=== PATIENT | male | born 1965 | race African-American/Black ===

== ENCOUNTER → 2025-01-20 | Outpatient (CLI) | payer BC, SELFPAY ==
[2025-01-20 17:39] LABS: AST(SGOT) 441 U/L (<=37); Alanine Aminotransfer ALT/SGPT 629 U/L (<=46); Albumin, Serum 4.4 g/dL (3.5-5.0); Alkaline Phosphatase 872 U/L (40-129); Anion Gap 12 (5-15); BUN 9 mg/dL (4-19); BUN/Creat Ratio 11.7 RATIO (10-20); Calcium,Total 9.6 mg/dL (7.6-11.0); Carbon Dioxide 24.2 mmol/L (21.0-32.0); Chloride 101 mmol/L (98-108); Globulin 4.2 g/dL (2.2-4.2); Glucose 102 mg/dL (70-99); Potassium 4.0 mmol/L (3.3-5.1)
[2025-01-20 17:42] LABS: Hematocrit 41.8 % (40-54); Hemoglobin 14.1 g/dL (13.0-16.5); Immature Granulocytes Count 0.070 X10^3/uL (0.0-0.0); Mean Corp Hgb Conc 33.7 g/dL (32-36); Mean Corpuscular Volume 84.6 fL (80-94); Mean Platelet Vol. 10.7 fl (6.2-12.0); NRBC Flagged by Analyzer 0 % (0-5); Platelet Count 262 K/mm3 (150-450); RBC Distribution Width CV 15.0 % (11.6-14.6); RBC Distribution Width SD 46.0 fl (35.1-43.9); Red Blood Count 4.94 M/mm3 (4.6-6.2); White Blood Count 11.3 K/mm3 (4.4-11.0)
[2025-01-20 18:04] LABS: Color, Urine Amber (Yellow); Glucose, Dipstick Normal (Normal); Ketone-Dipstick Negative (Negative); Leukocyte Esterase-Dipstick Negative /ul (Negative); Nitrite-Dipstick Negative (Negative); Occult Blood-Urine 25 /ul (Negative); Protein-Dipstick 30 mg/dl (Negative); Specific Gravity, Urine 1.020 (1.002-1.030)
[2025-01-20 18:05] LABS: Urine Bilirubin Dipstick 3 mg/dL (Negative)
[2025-01-20 19:37] LABS: Ammonia 92.2 umol/L (16-60)
[2025-01-21 16:12] LABS: Bilirubin, Direct 5.18 mg/dL (0.00-0.30)
[2025-01-22 03:07] LABS: HEPATITIS B SURFACE AG Negative (Negative); Hep C Antibodies Non Reactive (Non Reactive)
== END | disposition home or self-care (01) ==
LOC: VSLAB 16:23 → LAB 16:45
DX: Z13.1 Encounter for screening for diabetes mellitus (principal); R17 Unspecified jaundice
CPT/HCPCS: 36415; 80053; 80074; 81002; 82140; 82248; 83036; 85025

== ENCOUNTER 2025-01-24 13:39 | Inpatient (IN) | payer BC, SELFPAY ==
[2025-01-24] VITALS (8 sets, daily range): BP systolic 147–215; BP diastolic 92–124; PULSE 62–79; RESP 16–18; TEMP 36.7–37.1; O2SAT 97–99; BMI 24.7; BMI 29.0
--- NOTE | 2025-01-24 14:17 | CT_ITS ---
PROCEDURE: ABDOMEN/PELVIS W IV CONT ONLY 01/24/2025 REASON FOR EXAM: ELEVATE BILI, JAUNDICE Dark uterine. TECHNIQUE: Procedure Code: [id number] Modality: CT Procedure: ABDOMEN/PELVIS W IV CONT ONLY Coronal and Sagittal reconstruction series were provided. CONTRAST: Isovue-300 VOLUME: 100 mL One or more dose reduction techniques were used (e.g., Automated exposure control, adjustment of the mA and/or kV according to patient size, use of iterative reconstruction technique. RADIATION DOSE SUMMARY: CTDlvol: 8.2 mGy DLP: 467.18 mGycm COMPARISON: None FINDINGS: Lung bases: Minimal increased linear markings in the posterior medial segment of the left lower lobe suggestive of either atelectasis and/or scarring. Liver: Dilated central intrahepatic biliary ducts. Dilated common bile duct measuring 13 mm in its proximal portion. There is dilatation of the pancreatic duct. Findings suggestive of scattered cysts within the liver. The largest measures 2.4 cm by 2.4 cm in is in the central portion of the right lobe. Gallbladder: The gallbladder is distended. Spleen: Normal size. Pancreas: There is fullness of the head of the pancreas. Correlation with the ERCP recommended for further evaluation to rule out the possible mass in the head of the pancreas. Adrenals: Unremarkable Kidneys: Normal renal sizes. No hydronephrosis. Bladder: Distended urinary bladder. Prostatic enlargement with indentation of the bladder base. The prostate measures 4.9 cm by 5.4 cm. This causes indentation of the bladder base. Bowel: Unremarkable Appendix: Unremarkable Lymph nodes: No suspicious lymph node enlargement. Vasculature: The abdominal aorta and IVC are normal. Peritoneum / Retroperitoneum: Unremarkable Bones: Loss of the normal lumbar lordosis. Mild anterior spondylosis at the L2- L3 and L4-L5 levels. CT/Abdomen/Pelvis W IV Cont ONLY IMPRESSION: Dilated intra hepatic biliary ducts as well as the common bile duct and pancrea tic duct. Findings suggestive of a mass in the head of the pancreas. Correlation with ER CP recommended. Scattered hepatic cysts. Distended urinary bladder. Prostatic enlargement. Reading Location: [place] [id number]
--- NOTE | 2025-01-24 14:17 | EX.ED.DYSGE1 ---
HPI History of Present Illness Chief Complaint: Abn Labs Narrative Narrative: Patient is a 59-year-old male with no significant PMHx presenting with dark urine and scleral icterus. - Reports noticing dark urine for the past month. - Scleral icterus was observed by someone else approximately 5 days ago; unsure if it has been present longer. - Denies abdominal pain, nausea, emesis, diarrhea, dysuria, fevers, chills, chest pain, dyspnea, headaches, or vision changes. - Reports decreased flatulence. - No history of abdominal surgeries. - Denies tobacco, alcohol, or drug use. PFSH PFSH Medical History BPH (benign prostatic hyperplasia) Non-smoker Home Medications ?Medication ?Instructions ?Recorded ?Last Taken ?Type ibuprofen 200 mg tablet (Advil) 400 mg PO Q6H PRN fever or pain 01/24/25 Unknown History Allergy/AdvReac Type Severity Reaction Status Date / Time No Known Allergies Allergy Verified 01/24/25 13:42 Social History Smoking Status: Never smoker ROS ROS ED ROS Narrative Constitutional: (-) fever, (-) chills Head: (-) headache Eyes: (+) scleral icterus, (-) visual changes Cardiovascular: (-) chest pain Respiratory: (-) shortness of breath Gastrointestinal: (-) abdominal pain, (-) nausea, (-) vomiting, (-) diarrhea Genitourinary: (+) dark urine, (-) dysuria EXAM Physical Exam Narrative Exam Narrative: General: Patient was lying in bed rest comfortably did not appear to be acute distress Head: Atraumatic, normocephalic Eyes: Patient has scleral icterus noted bilaterally, PERRL bilaterally, EOMI bilaterally Neck: Soft, supple, trachea midline Cardiovascular: Regular rate and rhythm Respiratory: Clear to auscultation bilaterally Abdomen: Soft, nondistended, no tenderness to palpation Extremities: +5/5 strength noted in the bilateral upper and lower extremities, radial pulses +2/4 in the bilateral extremities Neurological: Patient following commands knew that he was at [facility] year is 2024 Skin: Warm, dry, intact no rashes or lesions noted Const Vital Signs: 01/24/25 13:40 01/24/25 14:02 01/24/25 16:05 Temperature 98.3 F 98.7 F Temperature Source Oral Pulse Rate 79 71 Respiratory Rate 16 18 Respiratory Effort Normal Blood Pressure 215/124 H 189/110 H Blood Pressure Mean 154 136 Pulse Ox 98 99 Oxygen Delivery Method Room Air MDM MDM MDM Narrative Medical decision making narrative: Patient is a 59-year-old male who presented to the emergency department with a chief complaint of jaundice and scleral icterus with abnormal blood work obtained in the outpatient setting. On the differential diagnose includes but limited to pancreatic mass, choledocholithiasis, cholangitis. Once workup is obtained reviewed he will be reevaluated. Patient be given IV fluids. Patient's CBC was reviewed which showed a normal white blood cell count of 9, he was stable 14.4, plate count 288. Patient sodium was 136, potassium normal 3.3, creatinine 0.78. Patient total bilirubin elevated 9.37, AST and ALT were 403 and 659 respectively direct bilirubin also elevated to 6.83. Patient lipase elevated to 26. Patient urinalysis did not show any evidence of infection however there was urobilinogen and bilirubin noted. Patient CT abdomen pelvis with IV contrast reviewed which showed dilated intrahepatic biliary duct as well as common bile duct and pancreatic duct finding suggestive of mass in the head of the pancreas correlation with ERCP recommended. Scattered hepatic cyst noted. Discussed case with on-call office director Dr. Baptiste who states that the patient can stay here at [facility] and he can evaluate and placed a stent. I discussed these results with the patient and family members at bedside Will discuss case with hospitalist for admission. Discussed case with hospitalist Dr. Corona who will except patient for admission. Patient notified as well as Hernández members at bedside all question concerns answered Lab Data Labs: Laboratory Results - last 24 hr 01/24/25 01/24/25 14:00 14:15 WBC 9.0 RBC 5.10 Hgb 14.4 Hct 43.1 MCV 84.5 MCH 28.2 MCHC 33.4 RDW Std Deviation 49.5 H RDW Coeff of Amie 15.9 H Plt Count 288 MPV 10.5 Immature Gran % (Auto) 0.800 Neut % (Auto) 70.8 H Lymph % (Auto) 19.8 [place] % (Auto) 8.0 Eos % (Auto) 0.2 Baso % (Auto) 0.4 Absolute Neuts (auto) 6.4 Absolute Lymphs (auto) 1.78 Nucleated RBC % 0 Sodium 136 Potassium 3.3 Chloride 100 Carbon Dioxide 23.5 Anion Gap 12 BUN 7 Creatinine 0.78 Estim Creat Clear Calc 95.34 Est GFR (MDRD) Non-Af 103 BUN/Creatinine Ratio 8.9 L Glucose 194 H Calcium 9.4 Total Bilirubin 9.37 H Direct Bilirubin 6.83 H AST 403 H ALT 659 H Alkaline Phosphatase 779 H Total Protein 8.5 H Albumin 4.4 Globulin 4.2 Albumin/Globulin Ratio 1.1 Lipase 226 H Urine Color Teresa Urine Clarity Clear Urine pH 6.0 Ur Specific [place] 1.010 Urine Protein 30 H Urine Glucose (UA) 100 H Urine Ketones Negative Urine Occult Blood 10 H Urine Nitrite Negative Urine Bilirubin 3 H Urine Urobilinogen 1 H Ur Leukocyte Esterase Negative Urine RBC 0-5 SEEN Urine WBC 0 SEEN Ur Squamous Epith Cells 0 SEEN Urine Bacteria 0 SEEN Urine Mucus RARE Radiography Diagnostic Testing: Clinical Impression(s) from Imaging Studies Abdomen/Pelvis CT 01/24/25 14:17 IMPRESSION: Dilated intra hepatic biliary ducts as well as the common bile duct and pancreatic duct. Findings suggestive of a mass in the head of the pancreas. Correlation with ERCP recommended. Scattered hepatic cysts. Distended urinary bladder. Prostatic enlargement. Reading Location: [facility] Discharge Plan Dx/Rx/DC Orders Clinical Impression: Hyperbilirubinemia, Transaminitis, Dilated bile duct, Mass of head of pancreas, Elevated BP without diagnosis of hypertension Disposition Disposition: Acute Care [facility]
[2025-01-24 14:23] LABS: Squamous Epithelial Cells - UA 0 SEEN /hpf (0-5)
[2025-01-24] MEDS: 0.9% Normal Saline (1000mL) 1,000 ML 999 ML IV (14:23)
[2025-01-24 14:24] LABS: Hematocrit 43.1 % (40-54); Hemoglobin 14.4 g/dL (13.0-16.5); Immature Granulocytes Count 0.070 X10^3/uL (0.0-0.0); Mean Corp Hgb Conc 33.4 g/dL (32-36); Mean Corpuscular Volume 84.5 fL (80-94); Mean Platelet Vol. 10.5 fl (6.2-12.0); NRBC Flagged by Analyzer 0 % (0-5); Platelet Count 288 K/mm3 (150-450); RBC Distribution Width CV 15.9 % (11.6-14.6); RBC Distribution Width SD 49.5 fl (35.1-43.9); Red Blood Count 5.10 M/mm3 (4.6-6.2); White Blood Count 9.0 K/mm3 (4.4-11.0)
[2025-01-24 14:27] LABS: Glucose, Dipstick 100 mg/dl (Normal); Ketone-Dipstick Negative (Negative); Leukocyte Esterase-Dipstick Negative /ul (Negative); Nitrite-Dipstick Negative (Negative); Occult Blood-Urine 10 /ul (Negative); Protein-Dipstick 30 mg/dl (Negative); Specific Gravity, Urine 1.010 (1.002-1.030)
[2025-01-24 14:33] LABS: Urine Bilirubin Dipstick 3 mg/dL (Negative)
[2025-01-24 14:34] LABS: Color, Urine Amber (Yellow)
[2025-01-24 14:35] LABS: Mucous, Urine RARE /hpf (<or=2+); Red Blood Cells-Urine 0-5 SEEN /hpf (0-5)
[2025-01-24 14:36] LABS: AST(SGOT) 403 U/L (<=37); Alanine Aminotransfer ALT/SGPT 659 U/L (<=46); Albumin, Serum 4.4 g/dL (3.5-5.0); Alkaline Phosphatase 779 U/L (40-129); Anion Gap 12 (5-15); BUN 7 mg/dL (4-19); BUN/Creat Ratio 8.9 RATIO (10-20); Bilirubin, Direct 6.83 mg/dL (0.00-0.30); Calcium,Total 9.4 mg/dL (7.6-11.0); Carbon Dioxide 23.5 mmol/L (21.0-32.0); Chloride 100 mmol/L (98-108); Estimated Creatinine Clearance 95.34 ml/min (50-250); Globulin 4.2 g/dL (2.2-4.2); Glucose 194 mg/dL (70-99); Lipase 226 U/L (13-75); Potassium 3.3 mmol/L (3.3-5.1)
--- NOTE | 2025-01-24 16:01 | PCM.HP.STD ---
HPI - General General Date of Admission: 01/24/25 Date of Service: 01/24/25 Chief Complaint: Abnormal labs HPI Narrative JUAN C MOREL, is a 59 M who presented to the emergency department at [facility] on 01/24/2025 due to abnormal outpatient labs. Patient reported that for about the last month he had had abnormally colored urine and then over the last week or so patient and family had noted that the whites of his eyes had become yellow. He denies any abdominal pain. He denies any nausea or vomiting. He states his bowel movements have been normal. He states his appetite has been normal and he has had no weight loss. He has no surgical history. He has no family history of any cancers to his knowledge. He is a lifelong non-smoker nondrinker and has never used any illicit substances. He is an immigrant from [facility] and has been in the [place] for about 5 years. Vital signs on presentation showed temperature of 98.3, heart rate 79, respiratory rate 16, initial blood pressure was 215/124, pulse ox was 98% on room air. CBC was unremarkable. Chemistry panel showed normal electrolytes, normal renal function, his glucose was elevated at 194 but he had a hemoglobin A1c that was done on 01/20/2025 that was 5.9. Liver functions and bilirubin were markedly abnormal. Alk phos was 779 with an ALT of 659, AST of 403 a direct bilirubin of 6.83 and bilirubin was 9.37. On outpatient labs done on 01/20/2025 he did have a ammonia level of 92.2 but is not encephalopathic. His lipase is 226 but he has no abdominal pain. His urine has significant bilirubin and urobilinogen but is not suggestive of infection. He also has proteinuria and glucosuria. He had outpatient hepatitis studies done that were negative he had outpatient hepatitis studies that were negative. Given his markedly elevated liver studies CT of the abdomen pelvis was done and showed dilated intrahepatic biliary ducts as well as dilated common bile duct and pancreatic duct with findings suggestive of a mass in the pancreatic head, scattered hepatic cysts, distended urinary bladder and enlarged prostate. Case was discussed with gastroenterology and plan is for inpatient ERCP. Anticipated length of stay is greater than 2 midnights. PFSH Medical History BPH (benign prostatic hyperplasia) Non-smoker Home Medications ?Medication ?Instructions ?Recorded ?Last Taken ?Type ibuprofen 200 mg tablet (Advil) 400 mg PO Q6H PRN fever or pain 01/24/25 Unknown History Allergy/AdvReac Type Severity Reaction Status Date / Time No Known Allergies Allergy Verified 01/24/25 13:42 Family History no significant family his no significant family history Surgical History no surgical history no surgical history Social History (Updated 01/24/25 @ 19:[address] Gisselle Corona, DO) household members: family housing: apartment current occupational status: employed Smoking Status: Never smoker alcohol intake: never substance use type: does not use ROS Constitutional Constitutional: Denies anorexia, change in weight, chills, fatigue, fever(s), malaise, night sweats, weakness or other Eyes Eyes: Reports other Details: Yellowing in the whites of his eyes ENT HEENT: Denies abnormal hearing, dysphagia, ear pain, epistaxis, headache(s), hearing loss, nasal congestion, nasal discharge, post nasal drip, sinus pressure, sore throat or other Cardiovascular Cardiovascular: Denies chest pain, claudication, dyspnea on exertion, edema, lightheadedness, orthopnea, palpitations, paroxysmal nocturnal dyspnea, rapid heart rate, syncope or other Respiratory/Chest Respiratory/Chest: Denies cough, dyspnea, excessive phlegm production, hemoptysis, productive cough, shortness of breath at rest, shortness of breath with exertion, wheezing or other Gastrointestinal Gastrointestinal: Denies abdominal pain, coffee ground emesis, constipation, diarrhea, dyspepsia, hematemesis, hematochezia, loose stools, melena, nausea, vomiting or other Genitourinary Genitourinary: Reports other Details: Darkening of urine in color for 1 month ; Denies burning urination, difficulty urinating, dysuria, hematuria, nocturia, urinary frequency, urinary hesitancy, urinary incontinence or urinary urgency Musculoskeletal Musculoskeletal: Denies arthralgias, back pain, joint pain, joint stiffness, joint swelling, myalgias, neck pain or other Neurologic Neurologic: Denies abnormal gait, abnormal speech, confusion, disequilibrium, dizziness, focal weakness, headache(s), numbness, paresthesias, seizure-like activity, seizures, syncope, tingling, tremor(s) or other Psychiatric Psychiatric: Denies anxiety, depression, homicidal ideation, suicidal ideation or other Endocrine Endocrinology: Denies change in body appearance, cold intolerance, excessive sweating, heat intolerance, polydipsia, polyuria or other Hematologic/Lymphatic Hematologic/Lymphatic: Denies anemia, easy bleeding, easy bruising, lymphadenopathy or other Allergic/Immunologic Allergic/Immunologic: Denies rhinitis, hives, eczemia, asthma or other Vital Signs Vital Signs Vital Signs: 01/24/25 13:40 01/24/25 14:02 Temperature 98.3 F Temperature Source Oral Pulse Rate 79 Respiratory Rate 16 Respiratory Effort Normal Blood Pressure 215/124 H Blood Pressure Mean 154 Pulse Ox 98 Oxygen Delivery Method Room Air Weight Weight: 71.668 kg Body Mass Index (BMI) 24.7 Physical Exam Const alert, oriented x3, no apparent distress and well nourished Constitutional Narrative: Middle-aged, black male, sitting up in bed, appears comfortable, nontoxic, overweight General Appearance: cooperative HEENT normocephalic, head/scalp atraumatic, hearing grossly normal bilaterally and moist oral mucous membranes HEENT Narrative: Buccal mucosa is jaundice, Mallampati is 3, no thrush Eyes EOMs intact bilaterally and conjunctivae normal Eyes Narrative: Scleral icterus is present Neck supple Neck Narrative: Trachea midline, no thyroid enlargement Resp normal respiratory effort, no retractions, no use of accessory muscles and clear to auscultation bilaterally Auscultation: Negative for rales, rhonchi or wheezes Cardio regular rate, regular rhythm, S1 normal heart sound, S2 normal heart sound, no murmurs, no rub, no gallops and no clicks GI normal to inspection, nondistended, normoactive bowel sounds, soft to palpation and non-tender Extremity no clubbing, cyanosis or edema Extremity Narrative: 2+ pedal pulses Neuro moves all extremities and no focal motor deficits Speech: speech normal Psych affect normal Results Lab / Micro Data 01/24/25 14:00 01/24/25 14:00 Labs: Laboratory Results - last 24 hr 01/24/25 14:00: WBC 9.0, RBC 5.10, Hgb 14.4, Hct 43.1, MCV 84.5, MCH 28.2, MCHC 33.4, RDW Std Deviation 49.5 H, RDW Coeff of Amie 15.9 H, Plt Count 288, MPV 10.5, Immature Gran % (Auto) 0.800, Neut % (Auto) 70.8 H, Lymph % (Auto) 19.8, [place] % (Auto) 8.0, Eos % (Auto) 0.2, Baso % (Auto) 0.4, Absolute Neuts (auto) 6.4, Absolute Lymphs (auto) 1.78, Nucleated RBC % 0, Sodium 136, Potassium 3.3, Chloride 100, Carbon Dioxide 23.5, Anion Gap 12, BUN 7, Creatinine 0.78, Estim Creat Clear Calc 95.34, Est GFR (MDRD) Non-Af 103, BUN/Creatinine Ratio 8.9 L, Glucose 194 H, Calcium 9.4, Total Bilirubin 9.37 H, Direct Bilirubin 6.83 H, AST 403 H, ALT 659 H, Alkaline Phosphatase 779 H, Total Protein 8.5 H, Albumin 4.4, Globulin 4.2, Albumin/Globulin Ratio 1.1, Lipase 226 H 01/24/25 14:15: Urine Color Teresa, Urine Clarity Clear, Urine pH 6.0, Ur Specific [place] 1.010, Urine Protein 30 H, Urine Glucose (UA) 100 H, Urine Ketones Negative, Urine Occult Blood 10 H, Urine Nitrite Negative, Urine Bilirubin 3 H, Urine Urobilinogen 1 H, Ur Leukocyte Esterase Negative, Urine RBC 0-5 SEEN, Urine WBC 0 SEEN, Ur Squamous Epith Cells 0 SEEN, Urine Bacteria 0 SEEN, Urine Mucus RARE Imaging Radiology Impression Abdomen/Pelvis CT 01/24/25 14:17 IMPRESSION: Dilated intra hepatic biliary ducts as well as the common bile duct and pancreatic duct. Findings suggestive of a mass in the head of the pancreas. Correlation with ERCP recommended. Scattered hepatic cysts. Distended urinary bladder. Prostatic enlargement. Reading Location: [facility] Assessment & Plan Assessment/Plan (1) Hyperbilirubinemia: (2) Transaminitis: (3) Dilated bile duct: (4) Mass of head of pancreas: (5) Hyperglycemia: (6) Elevated BP without diagnosis of hypertension: (7) Urinary retention: PLAN: Plan Pancreatic head mass - Highly suspect malignancy - ERCP for diagnosis - Check CA 19-9 - GI consulted to assist with diagnosis and follow-up Hyperbilirubinemia/transaminitis/dilated biliary ducts - Seems to be related to a mass in the pancreatic head - Plan is for ERCP with biopsies I suspect stenting - Liver functions should improve once stents are in place - GI is consulted with plan ERCP for tomorrow - Regular diet tonight and n.p.o. after midnight - Start LR at 75 cc/h at midnight - GI consulted-discussed with Dr. Baptiste Hyperglycemia - Had outpatient A1c that was 5.9 on 01/20/2025 - Patient may develop diabetes depending on pancreatic head mass - Accu-Cheks as ordered - SSI as ordered - Blood sugar on admission was significantly higher than reflected on his A1c Elevated blood pressure - Marked blood pressure elevation in the emergency department and on the floor prior to admission with no history of hypertension - IV labetalol given in emergency department - Start inpatient amlodipine - Give enalaprilat 1.25 mg x 1 dose - as needed hydralazine 10 mg IV every 6 hours for systolic blood pressure greater than 140 - Suspect patient may need multiple agents to control his blood pressure adequately DVT prophylaxis - Subcu enoxaparin 40 mg CODE STATUS - Full code as verified Charges/Coding Visit Charges Inpatient E&M: 41249 Init Hosp L2
[2025-01-25] VITALS (16 sets, daily range): BP systolic 118–166; BP diastolic 78–104; PULSE 71–90; RESP 14–20; TEMP 36.5–37.1; O2SAT 95–100; BMI 28.8
[2025-01-25] MEDS: Lactated Ringers 1,000 ML 100 ML IV ×3 (00:16→23:02)
[2025-01-25 05:40] LABS: Hematocrit 35.5 % (40-54); Hemoglobin 12.5 g/dL (13.0-16.5); Immature Granulocytes Count 0.050 X10^3/uL (0.0-0.0); Mean Corp Hgb Conc 35.2 g/dL (32-36); Mean Corpuscular Volume 82.9 fL (80-94); Mean Platelet Vol. 10.9 fl (6.2-12.0); NRBC Flagged by Analyzer 0 % (0-5); Platelet Count 261 K/mm3 (150-450); RBC Distribution Width CV 16.0 % (11.6-14.6); RBC Distribution Width SD 48.3 fl (35.1-43.9); Red Blood Count 4.28 M/mm3 (4.6-6.2); White Blood Count 10.9 K/mm3 (4.4-11.0)
--- NOTE | 2025-01-25 05:55 | EKG12_ITS ---
Test Reason : AM EKG Blood Pressure : */* mmHG Vent. Rate : 76 BPM Atrial Rate : 76 BPM P-R Int : 174 ms QRS Dur : 82 ms QT Int : 388 ms P-R-T Axes : 54 -12 -52 degrees QTcB Int : 436 ms Normal sinus rhythm Minimal voltage criteria for LVH, may be normal variant ( R in aVL ) Nonspecific T wave abnormality Abnormal ECG No previous ECGs available Confirmed by BOLIVAR PINON, CASSIE ([id number]), sports editor GAGE KELLY ([id number]) on 01/26/2025 8:27:15 AM Referred By: JACINTA Confirmed By: CASSIE LUTZ MD
[2025-01-25 06:18] LABS: Magnesium 2.2 mg/dL (1.5-2.2)
[2025-01-25 06:34] LABS: AST(SGOT) 319 U/L (<=37); Alanine Aminotransfer ALT/SGPT 531 U/L (<=46); Albumin, Serum 3.7 g/dL (3.5-5.0); Alkaline Phosphatase 626 U/L (40-129); Anion Gap 12 (5-15); BUN 6 mg/dL (4-19); BUN/Creat Ratio 9.7 RATIO (10-20); Calcium,Total 8.8 mg/dL (7.6-11.0); Carbon Dioxide 22.0 mmol/L (21.0-32.0); Chloride 104 mmol/L (98-108); Estimated Creatinine Clearance 116.49 ml/min (50-250); Globulin 3.3 g/dL (2.2-4.2); Glucose 120 mg/dL (70-99); Potassium 3.2 mmol/L (3.3-5.1)
--- NOTE | 2025-01-25 08:30 | RAD_ITS ---
PROCEDURE: ERCP BILIARY ONLY 01/25/2025 REASON FOR EXAM: PAIN TECHNIQUE: Procedure Code: RADERCPBIL Modality: DX Procedure: ERCP BILIARY ONLY COMPARISON: 01/24/2025. FINDINGS: Intraoperative fluoroscopy was performed. 66.1 seconds of fluoroscopic time. 15.7 mGy. See procedure report for full details. RAD/ERCP Biliary Only IMPRESSION: As above. Reading Location: [id number]
--- NOTE | 2025-01-25 10:55 | PN.HOSP_ITS ---
Subjective Subjective Resting comfortably, no issues overnight Objective Data Objective Data Vital Signs: Vital Signs Temp Pulse Resp BP Pulse Ox O2 Del Method 98.4 F 89 16 157/94 H 99 Room Air 01/25/25 10:15 01/25/25 10:28 01/25/25 10:15 01/25/25 10:28 01/25/25 10:15 01/25/25 10:19 Oxygen Delivery Method Room Air Weight: 173 lb 4.533 oz Body Mass Index (BMI) 28.8 Intake & Output: Intake and Output for Last 24 Hours 01/24/25 01/25/25 01/26/25 03:59 03:59 03:59 Intake Total 1250 / 1250 995 / 995 Output Total 500 / 500 250 / 250 Balance 750 / 750 745 / 745 Lab / Micro Data 01/25/25 05:12 01/25/25 05:12 Labs: Laboratory Results - last 24 hr 01/24/25 14:00: WBC 9.0, RBC 5.10, Hgb 14.4, Hct 43.1, MCV 84.5, MCH 28.2, MCHC 33.4, RDW Std Deviation 49.5 H, RDW Coeff of Amie 15.9 H, Plt Count 288, MPV 10.5, Immature Gran % (Auto) 0.800, Neut % (Auto) 70.8 H, Lymph % (Auto) 19.8, [place] % (Auto) 8.0, Eos % (Auto) 0.2, Baso % (Auto) 0.4, Absolute Neuts (auto) 6.4, Absolute Lymphs (auto) 1.78, Nucleated RBC % 0, Sodium 136, Potassium 3.3, Chloride 100, Carbon Dioxide 23.5, Anion Gap 12, BUN 7, Creatinine 0.78, Estim Creat Clear Calc 95.34, Est GFR (MDRD) Non-Af 103, BUN/Creatinine Ratio 8.9 L, G lucose 194 H, Calcium 9.4, Total Bilirubin 9.37 H, Direct Bilirubin 6.83 H, AST 403 H, ALT 659 H, Alkaline Phosphatase 779 H, Total Protein 8.5 H, Albumin 4.4, Globulin 4.2, Albumin/Globulin Ratio 1.1, Lipase 226 H 01/24/25 14:15: Urine Color Teresa, Urine Clarity Clear, Urine pH 6.0, Ur Specific [place] 1.010, Urine Protein 30 H, Urine Glucose (UA) 100 H, Urine Ketones Negative, Urine Occult Blood 10 H, Urine Nitrite Negative, Urine Bilirubin 3 H, Urine Urobilinogen 1 H, Ur Leukocyte Esterase Negative, Urine RBC 0-5 SEEN, Urine WBC 0 SEEN, Ur Squamous Epith Cells 0 SEEN, Urine Bacteria 0 SEEN, Urine Mucus RARE 01/24/25 19:03: POC Glucose 109 H 01/24/25 21:23: POC Glucose 119 H 01/25/25 05:12: WBC 10.9, RBC 4.28 L, Hgb 12.5 L, Hct 35.5 L, MCV 82.9, MCH 29.2, MCHC 35.2 D, RDW Std Deviation 48.3 H, RDW Coeff of Amie 16.0 H, Plt Count 261, MPV 10.9, Immature Gran % (Auto) 0.500, Neut % (Auto) 70.3 H, Lymph % (Auto) 19.0, [place] % (Auto) 9.3, Eos % (Auto) 0.6, Baso % (Auto) 0.3, Absolute Neuts (auto) 7.7, Absolute Lymphs (auto) 2.07, Nucleated RBC % 0, Sodium 138, P otassium 3.2 L, Chloride 104, Carbon Dioxide 22.0, Anion Gap 12, BUN 6, C reatinine 0.66 L, Estim Creat Clear Calc 116.49, Est GFR (MDRD) Non-Af 108, B UN/Creatinine Ratio 9.7 L, Glucose 120 H, Calcium 8.8, Phosphorus 3.1, Magnesium 2.2, Total Bilirubin 7.98 H, AST 319 H, ALT 531 H, Alkaline Phosphatase 626 H, Total Protein 7.0, Albumin 3.7, Globulin 3.3, Albumin/Globulin Ratio 1.1, TSH 1.180 01/25/25 06:16: POC Glucose 121 H Radiography Diagnostic Testing: Radiology Impression Abdomen/Pelvis CT 01/24/25 14:17 IMPRESSION: Dilated intra hepatic biliary ducts as well as the common bile duct and pancreatic duct. Findings suggestive of a mass in the head of the pancreas. Correlation with ERCP recommended. Scattered hepatic cysts. Distended urinary bladder. Prostatic enlargement. Reading Location: [place] [id number] Physical Exam Narrative General: Alert, Oriented x3, Cooperative, No apparent distress HEENT: Atraumatic, PERRLA, EOMI, Normocephalic Oral: Moist Mucosa Neck: Supple, No JVD Lungs: Diminished, Normal air movement, No rhonchi, No wheeze, No rales Cardiovascular: Regular rate, Regular Rhythm, Normal S1, Normal S2, No murmurs Abdomen: Soft, Non Tender, Non-Distended, No Hepato-splenomegaly Extremities: No edema, Capillary Refill Less than 3 Seconds Skin: No rashes, No breakdown Musculoskeletal: No Tenderness to Palpation of Joints or Extremities Neurological: No focal neurological deficits, moves all extremities Psych/Mental Status: Normal Affect, Appropriate Assessment & Plan Assessment/Plan (1) Dilated bile duct: (2) Mass of head of pancreas: PLAN: Plan 1. Pancreatic head mass with hyperbilirubinemia and transaminitis and biliary duct dilatation ? Consult to GI for ERCP ? CA 19-9 is pending ? LFTs remain elevated as his bilirubin ?N.p.o., continue with IV fluids 2. Hypokalemia ? Will monitor and replace 3. Hyperglycemia and elevated blood pressure ? He is on sliding scale insulin and Accu-Cheks ? A1c is 5.9, he is not diabetic ? Blood pressures are elevated but this is likely related to current diagnosis and stress ? He has been started on admission on Norvasc, will hold and see if his blood pressure resolves after intervention for his pancreatic head mass DVT: Lovenox Charges/Coding Visit Charges Inpatient E&M: 78375 Subs Hosp L2
--- NOTE | 2025-01-25 14:04 | CASEMGMT ---
DAMIEN ALARCON Assessment: Face to Face with pt for initial transition planning/care coordination assessment. DAMIEN ALARCON introduced self and role at [facility], pt voices understanding and consents to assessment. Pt is A&O x4 and answers all questions appropriately at this time. Pt lying in bed in no distress. Care providers, pharmacy, and demographics verified/updated. Strata: 1 Admitting Dx: Transaminitis/Hyperbilirubinemia/pancreatic PCP: [facility] Specialists: Denies Preferred Pharmacy: [facility] Insurance: [place] Prescription Benefit: yes LNOK: Sister in Law, TT Living Arrangements: Pt lives with , but she is traveling for a while. ADLs: Pt states I with ADLs and IADLs. Transportation: Pt drives self and denies concerns with transportation. DME: Denies HHC/SNF: Denies Hx of. Pt states no concerns with going home at time of dc. Pt states no further concerns/needs. CM to follow. Advised pt to ask CM if any further question/concerns/needs arise, voices understanding. Pt Goal: Home Plan: Home, follow for safe DC plan. Florentino QUEZADA CM
--- NOTE | 2025-01-25 15:29 | CON.PCM.GI_ITS ---
HPI Consult Data Date of Consult: 01/25/25 HPI Narrative Reason for Consultation: Painless jaundice HPI Narrative: JUAN C MOREL, is a 59 M who presents with a Chief Complaint:?Abnormally colored urine and my eyes have turned yellow. The patient is a 59-year-old male presenting to the emergency department for evaluation of abnormal labs. He reports having abnormally colored, dark urine for approximately one month. Over the last week, both he and his family have noticed that the sclera (whites) of his eyes have become yellow. He denies fever, chills, abdominal pain, or changes in bowel habits. Labs (Outpatient, abnormal): * Alkaline Phosphatase (Alk Phos): 779 U/L (markedly elevated). * Alanine Aminotransferase (ALT): 659 U/L (markedly elevated). * Aspartate Aminotransferase (AST): 403 U/L (markedly elevated). * Direct Bilirubin: 6.83 mg/dL (markedly elevated). * Total Bilirubin: 9.37 mg/dL (markedly elevated). Imaging (CT Abdomen/Pelvis): * Dilated intrahepatic biliary ducts. * Dilated common bile duct. * Dilated pancreatic duct. * Findings suggestive of a mass in the pancreatic head PFSH Medical History BPH (benign prostatic hyperplasia) Non-smoker Home Medications ?Medication ?Instructions ?Recorded ?Last Taken ?Type ibuprofen 200 mg tablet (Advil) 400 mg PO Q6H PRN feve r or pain 01/24/25 Unknown History Allergy/AdvReac Type Severity Reaction Status Date / Time No Known Allergies Allergy Verified 01/24/25 13:42 Family History no significant family his Surgical History no surgical history Social History household members: family housing: apartment current occupational status: employed Smoking Status: Never smoker alcohol intake: never substance use type: does not use ROS Constitutional Constitutional: Denies anorexia, change in weight, chills, fatigue, fever(s), malaise, night sweats, weakness or other Eyes Eyes: Reports other Details: Yellowing in the whites of his eyes ENT HEENT: Denies abnormal hearing, dysphagia, ear pain, epistaxis, headache(s), hearing loss, nasal congestion, nasal discharge, post nasal drip, sinus pressure, sore throat or other Cardiovascular Cardiovascular: Denies chest pain, claudication, dyspnea on exertion, edema, lightheadedness, orthopnea, palpitations, paroxysmal nocturnal dyspnea, rapid heart rate, syncope or other Respiratory/Chest Respiratory/Chest: Denies cough, dyspnea, excessive phlegm production, hemoptysis, productive cough, shortness of breath at rest, shortness of breath with exertion, wheezing or other Gastrointestinal Gastrointestinal: Denies abdominal pain, coffee ground emesis, constipation, diarrhea, dyspepsia, hematemesis, hematochezia, loose stools, melena, nausea, vomiting or other Genitourinary Genitourinary: Reports other Details: Darkening of urine in color for 1 month ; Denies burning urination, difficulty urinating, dysuria, hematuria, nocturia, urinary frequency, urinary hesitancy, urinary incontinence or urinary urgency Musculoskeletal Musculoskeletal: Denies arthralgias, back pain, joint pain, joint stiffness, joint swelling, myalgias, neck pain or other Neurologic Neurologic: Denies abnormal gait, abnormal speech, confusion, disequilibrium, dizziness, focal weakness, headache(s), numbness, paresthesias, seizure-like activity, seizures, syncope, tingling, tremor(s) or other Psychiatric Psychiatric: Denies anxiety, depression, homicidal ideation, suicidal ideation or other Endocrine Endocrinology: Denies change in body appearance, cold intolerance, excessive sweating, heat intolerance, polydipsia, polyuria or other Hematologic/Lymphatic Hematologic/Lymphatic: Denies anemia, easy bleeding, easy bruising, lymphadenopathy or other Allergic/Immunologic Allergic/Immunologic: Denies rhinitis, hives, eczemia, asthma or other Physical Exam Narrative General: Alert, Oriented x3, Cooperative, No apparent distress HEENT: Atraumatic, PERRLA, EOMI, Normocephalic Oral: Moist Mucosa Neck: Supple, No JVD Lungs: Diminished, Normal air movement, No rhonchi, No wheeze, No rales Cardiovascular: Regular rate, Regular Rhythm, Normal S1, Normal S2, No murmurs Abdomen: Soft, Non Tender, Non-Distended, No Hepato-splenomegaly Extremities: No edema, Capillary Refill Less than 3 Seconds Skin: No rashes, No breakdown Musculoskeletal: No Tenderness to Palpation of Joints or Extremities Neurological: No focal neurological deficits, moves all extremities Psych/Mental Status: Normal Affect, Appropriate Lab / Micro Data 01/25/25 05:12 01/25/25 05:12 Labs: Laboratory Results - last 24 hr 01/24/25 19:03: POC Glucose 109 H 01/24/25 21:23: POC Glucose 119 H 01/25/25 05:12: WBC 10.9, RBC 4.28 L, Hgb 12.5 L, Hct 35.5 L, MCV 82.9, MCH 29.2, MCHC 35.2 D, RDW Std Deviation 48.3 H, RDW Coeff of Amie 16.0 H, Plt Count 261, MPV 10.9, Immature Gran % (Auto) 0.500, Neut % (Auto) 70.3 H, Lymph % (Auto) 19.0, [place] % (Auto) 9.3, Eos % (Auto) 0.6, Baso % (Auto) 0.3, Absolute Neuts (auto) 7.7, Absolute Lymphs (auto) 2.07, Nucleated RBC % 0, Sodium 138, P otassium 3.2 L, Chloride 104, Carbon Dioxide 22.0, Anion Gap 12, BUN 6, C reatinine 0.66 L, Estim Creat Clear Calc 116.49, Est GFR (MDRD) Non-Af 108, B UN/Creatinine Ratio 9.7 L, Glucose 120 H, Calcium 8.8, Phosphorus 3.1, Magnesium 2.2, Total Bilirubin 7.98 H, AST 319 H, ALT 531 H, Alkaline Phosphatase 626 H, Total Protein 7.0, Albumin 3.7, Globulin 3.3, Albumin/Globulin Ratio 1.1, TSH 1.180 01/25/25 06:16: POC Glucose 121 H 01/25/25 11:55: POC Glucose 126 H Assessment & Plan Assessment/Plan (1) Transaminitis: (2) Hyperbilirubinemia: (3) Dilated bile duct: (4) Mass of head of pancreas: PLAN: Differential Diagnosis: * Pancreatic head mass:?The imaging findings of a mass in the pancreatic head causing dilation of the common bile duct and pancreatic duct (the double duct sign) strongly suggest an obstructive etiology, such as a pancreatic adenocarcinoma. This would explain the constellation of symptoms and lab abnormalities. * Cholangiocarcinoma:?A tumor arising from the bile ducts could also cause biliary obstruction and the observed findings. * Chronic Pancreatitis:?Severe, chronic inflammation of the pancreas can lead to fibrosis and strictures that cause ductal dilation, but the abrupt onset of symptoms and mass-like finding make a malignancy more likely. * Benign biliary stricture:?While possible, the combination of a pancreatic head mass and abnormal liver function tests makes a simple benign stricture less likely. Final Impression:?The primary impression is an obstructive biliary process likely secondary to a pancreatic head mass, causing jaundice and elevated liver enzymes. Plan * Further imaging:?Endoscopic Retrograde Cholangiopancreatography (ERCP) to further evaluate the mass and potentially perform a biopsy and stent placement for biliary decompression. Endoscopic Ultrasound (EUS) may also be necessary. Charges/Coding Visit Charges Inpatient E&M: 31071 Init Hosp L3
[2025-01-25] MEDS: Lactated Ringers 1,000 ML 15 ML IV (15:48)
--- NOTE | 2025-01-25 15:57 | PCM.PRE.AN2 ---
ASA Classification* ASA Classification ASA Classification: 1 Assessment & Plan Anesthesia* Anesthesia Assessment Anesthesia Assessment: Discussed sedation and/or anesthesia options, risks, benefits, and alternatives with patient/parents/legal guardian/POA. Questions invited. The patient/parents/legal guardian/POA seems to understand and agrees to proceed with anesthesia plan. Reviewed the physical assessment, medical history, allergy history and patient home medications list prior to surgery/procedure/anesthetic and documented any changes. Performed airway and anesthesia risk assessments. Anesthesia Type Anesthesia Type: General History Source History Obtained from:: Patient and Chart Anesthesia Focused Assessment* Temperature: 98.3 F Pulse Rate: 75 Blood Pressure: 154/96 Respiratory Rate: 14 Pulse Ox: 98 Oxygen Delivery Method: Room Air Airway Assessment Mouth opens: >3 cm Mallampati Score: II Teeth Condition: Missing (Patient has a missing right upper molar. Rest are tight.) Neck Range of motion (ROM): Limited ROM (Slight Decrease) Labs Anesthesia Preop lab: CBC WBC, (4.4-11.0) 10.9 K/mm3 Today, 05:12 RBC, (4.6-6.2) 4.28 M/mm3 L Today, 05:12 Hgb, (13.0-16.5) 12.5 g/dL L Today, 05:12 Hct, (40-54) 35.5 % L Today, 05:12 Plt Count, (150-450) 261 K/mm3 Today, 05:12 CHEMISTRY Potassium, (3.3-5.1) 3.2 mmol/L L Today, 05:12 Sodium, (133-145) 138 mmol/L Today, 05:12 Magnesium, (1.5-2.2) 2.2 mg/dL Today, 05:12 Phosphorus, (2.7-4.5) 3.1 mg/dL Today, 05:12 BUN, (4-19) 6 mg/dL Today, 05:12 Creatinine, (0.70-1.20) 0.66 mg/dL L Today, 05:12 Glucose, (70-99) 120 mg/dL H Today, 05:12 POC Glucose, (74-106) 126 mg/dL H Today, 11:55 TSH, (0.300-4.200) 1.180 uIU/mL Today, 05:12 COAG Pre-Assessment Diagnosis/Proposed Procedure Planned Operative Procedure(s): Endoscopic retrograde cholangiopancreatography. Anesthesia History Anesthesia History - pediatric genetic counselor: Anesthesia History - pediatric genetic counselor Hx Hospitalization Any Problems With Anesthesia No 01/25/25 06:12 Cholinesterase deficiency No 01/25/25 06:12 You/Your Family Experience No 01/25/25 06:12 fever (hyperthermia) with Relationship Recent Exposure to Contagious No 01/25/25 06:12 Disease Does patient have nerve No 01/25/25 06:12 stimulator Patient instructed to have No 01/25/25 06:12 device shut off --Does patient have Pacemaker No 01/25/25 10:15 or ICD? When Was Last Pacemaker Check QUESTION #4 FULL TEXT: You/Your Family Experience fever (hyperthermia) with Anesthesia Last Oral Intake Last Oral intake: Last Oral Intake NPO since 00:00 01/25/25 10:15 Meds taken in AM with sips of water? Meds patient instructed to take am of surgery PONV PONV - pediatric genetic counselor: PONV - pediatric genetic counselor Female HX of Motion Sickness HX of N/V After Surgery Non-Smoker Duration of Surgery greater than 60 minutes Number of Risk Factors PONV Score Height & Weight Height & Weight: Anesthesia: Height & Weight Height 5 ft 5 in 01/25/25 10:15 Weight: 78.6 kg 01/25/25 10:15 Body Mass Index (BMI) 28.8 01/25/25 10:15 Respiratory Assessment Respiratory Assessment - pediatric genetic counselor: Respiratory Tract Infection Hx - pediatric genetic counselor Hx Respiratory Tract Infection No 01/25/25 06:12 STOP Sleep Apnea STOP Sleep Apnea - pediatric genetic counselor: STOP Sleep Apnea - pediatric genetic counselor Hx Hypertension Yes 01/24/25 18:56 Hx Sleep Apnea No 01/24/25 18:56 CPAP BIPAP Do you snore loudly (louder No 01/24/25 18:56 than talking or can be heard Do you often feel tired/ No 01/24/25 18:56 fatigued/ sleepy during daytime? Has anyone observed you stop No 01/24/25 18:56 breathing during sleep? STOP Results Negative 01/24/25 18:56 QUESTION #5 FULL TEXT : Do you snore loudly (louder than talking or can be heard through closed doors)? Tobacco Use History Tobacco Use History - pediatric genetic counselor: Tobacco Use History - pediatric genetic counselor Tobacco Use Smoking Status Never smoker 01/24/25 19:33 Hx Tobacco Use No 01/24/25 18:56 Years Smoking Packs Smoked per Day Smoking Cessation Date was within the last 15 years Hx Smoking Cessation Date Hx Smoking Cessation Counseling Hematologic Medial History Hematologic Hx - pediatric genetic counselor: Hematologic Medical Hx - injection maintenance technician Hx of Blood Transfusion No 01/24/25 18:56 Hx of Transfusion in last 3 No 01/24/25 18:56 Months Date of Last Transfusion (if within last 3 months) Ever experience any problems No 01/24/25 18:56 with transfusion(s)? Specify any problems Hx of Preganancy in last 3 N/A 01/24/25 18:56 Months Nurse Filling Out Transfusion ACOEY 01/24/25 18:56 & Questions: Date: 01/24/25 01/24/25 18:56 Time: 18:57 01/24/25 18:56 Patient unable to answer at this time (ie. confused, unrespo /Reproduction History /Reproductive History - pediatric genetic counselor: /Reproductive Hx- pediatric genetic counselor Hx Now No 01/25/25 06:12 Gestational Age (in weeks): EDC: Hx Hx Para Hx Section SAB No 01/25/25 06:12 Active Medications Active Medications: Current Medications Generic Name Dose Route Start Last Admin Trade Name Freq PRN Reason Stop Dose Admin Enoxaparin Sodium 40 mg 01/25/25 10:00 Enoxaparin 40 Mg/0.4 Ml Syringe SC DAILY AKASH Glucagon 1 mg 01/24/25 18:17 Glucagon 1 Mg/Ml Syringe IM X1 PRN HYPOGLYCEMIA Protocol Hydralazine HCl 10 mg 01/24/25 18:17 01/25/25 10:28 Hydralazine 20 Mg/Ml Vial IV 10 mg Q6H PRN PRN Administration SBP>140 Protocol Hydromorphone HCl 0.5 mg 01/24/25 18:17 Hydromorphone 0.5 Mg/0.5 Ml Syringe IV Q3H PRN PRN Pain Score 6-10 Dextrose 250 mls @ 0 mls/hr 01/24/25 18:17 Dextrose 10%-Water IV .Q0M PRN HYPOGLYCEMIA Protocol As Directed Lactated Ringer's 1,000 mls @ 100 mls/hr 01/25/25 00:01 01/25/25 10:13 IV 100 mls/hr .Q10H AKASH Administration Sodium Chloride 250 mls @ 15 mls/hr 01/24/25 18:22 IV .[id number] PRN Saline Flush Sodium Chloride 250 mls @ 15 mls/hr 01/24/25 18:22 IV .[id number] PRN Additional IVPB Infusion Lactated Ringer's 1,000 mls @ 15 mls/hr 01/25/25 15:45 01/25/25 15:48 IV 15 mls/hr .Q48H AKASH Administration Insulin Human Lispro 0 unit 01/24/25 22:00 01/25/25 12:00 Insulin Lispro 100 Unit/Ml Insuln.Pen SC Not Given ACHS AKASH Protocol Ondansetron HCl 4 mg 01/24/25 18:17 Ondansetron 4 Mg/2 Ml Vial IV Q8H PRN PRN NAUSEA/VOMITING Senna/Docusate Sodium 2 tablet 01/24/25 18:17 Senna/Docusate Sodium 1 Tablet PO BID PRN PRN Constipation Sodium Chloride 10 - 40 ml 01/24/25 18:22 0.9% Saline Lock 10 Ml Syringe IV UD PRN SALINE FLUSH Tamsulosin HCl 0.8 mg 01/24/25 18:17 01/24/25 18:51 Tamsulosin Hcl 0.4 Mg Capsule PO 0.8 mg DAILY@1730 AKASH Administration PFSH Medical History BPH (benign prostatic hyperplasia) Non-smoker Home Medications ?Medication ?Instructions ?Recorded ?Last Taken ?Type ibuprofen 200 mg tablet (Advil) 400 mg PO Q6H PRN fever or pain 01/24/25 Unknown History Allergy/AdvReac Type Severity Reaction Status Date / Time No Known Allergies Allergy Verified 01/24/25 13:42 Family History no significant family his Surgical History no surgical history no surgical history (No problems with anesthesia in his family.) Social History household members: family housing: apartment current occupational status: employed Smoking Status: Never smoker alcohol intake: never substance use type: does not use Review of Systems (Anesthesia) ROS Narrative System reviewed and no additional complaints, except as documented.
[2025-01-25] MEDS: Lactated Ringers 1,000 ML 1000 ML IV (16:19)
[2025-01-25] MEDS: Lidocaine 1% (5 ml sdv) 5 ML Vial 10 ML IV (16:25)
[2025-01-25] MEDS: fentaNYL 100 MCG/2 ML Ampul IV (16:25)
--- NOTE | 2025-01-25 16:30 | FLU_PTH ---
PATIENT: JUAN C MOREL [place] [facility] [id number] AGE/SX: 59/M [place]OM: [facility] [place]24/[address]: Dr. Ellen Mcqueen MD : 1965 BED: 1 DIS: 01/29/2025 SPEC #: [id number] RECD: 01/25/25 17:16 STATUS: CHRISTY ROMERO #: [id number] TRAE: 01/25/25 16:[address]: Amador Herrera DEPT: CYTOLOGY RECD BY: Rubi Escalante ENTERED: 01/26/25 07:58 SP TYPE: Fluid OTHR DR: DO Dr. Adal Lara MD Dr. Rahsaan Friend, DO Whitney Flores INTEGRATION SOFTWARE ENGINEER-C Lana Magdaleno INTEGRATION SOFTWARE ENGINEER-C DIONI Guy [facility], INTEGRATION SOFTWARE ENGINEER-C Tissues: Bile duct, NOS Procedures: Special Stain Group II Surgery Specimen Level IV Cytospin Fluid Cytology Other HEADER OPERATION: ERCP PRE-OP DIAGNOSIS: Painless jaundice, mass of pancreas TISSUE SUBMITTED: A- Biliary stricture brush tip and brushings for cytology DIAGNOSIS CYTOLOGY A. Bile duct, stricture, ERCP (cytospin, cellblock, smear x3): * No malignant cells identified. * The specimen is of low cellularity. CYTOLOGY STUDY Slides are reviewed. CYTOLOGY GROSS A. Received is 1 brush with 0.2 ml of [id number] fluid and 3 smears labeled with the patient's name and and designated per the requisition as Biliary stricture brush tip and brushings. Submitted for cytology and cell block preparation. 01/26/2025 CPT: 68563,33055
--- NOTE | 2025-01-25 17:00 | OP.PROVAT_ITS ---
01/25/2025 Onelia Drew Np, Remigio Re : ERCP procedure for Leslie Brantley Dear Viki This procedure was performed on Saturday, January 25, 2025. My impressions and recommendations are as follows: Impressions : - A single localized biliary stricture was found in the lower third of the main bile duct. The stricture was indeterminate. - The entire main bile duct and entire biliary tree were severely dilated, with a mass causing an obstruction. - Choledocholithiasis was found. Complete removal was accomplished by biliary sphincterotomy and balloon extraction. - A biliary sphincterotomy was performed. - The biliary tree was swept. - Cells for cytology obtained in the lower third of the main duct. - One temporary stent was placed into the common bile duct. Recommendations : My findings are described in the full procedure note, which is enclosed. If I can be of further assistance, please feel free to contact me at . Sincerely, Martin Baptiste DO 01/25/2025 5:00:10 PM This report has been signed electronically.
--- NOTE | 2025-01-25 17:00 | OP.ERCP_ITS ---
Patient Name: Leslie Mlotshwa Procedure Date: 01/25/2025 4:16 PM Date of : 1965 Age: 59 Procedure: ERCP Indications: Common bile duct stricture, Jaundice, Elevated liver enzymes, Tumor of the head of pancreas Providers: Martin Baptiste DO Medicines: General Anesthesia Patient Profile: This is a 59 year old male. Refer to note in patient chart for documentation of history and physical. Patient has symptoms of acute jaundice. This patient has no history of previous ERCP. This patient has no history of surgical alteration of the upper digestive tract anatomy. Complications: No immediate complications. Procedure: Pre-Anesthesia Assessment: - Prior to the procedure, a History and Physical was performed, and patient medications and allergies were reviewed. The patient is competent. The risks and benefits of the procedure and the sedation options and risks were discussed with the patient. All questions were answered and informed consent was obtained. Patient identification and proposed procedure were verified by the physician in the pre-procedure area. Mental Status Examination: alert and oriented. Airway Examination: normal oropharyngeal airway and neck mobility. Respiratory Examination: clear to auscultation. CV Examination: normal. Prophylactic Antibiotics: The patient does not require prophylactic antibiotics. Prior Anticoagulants: The patient has taken no anticoagulant or antiplatelet agents except for NSAID medication. ASA Grade Assessment: II - A patient with mild systemic disease. After reviewing the risks and benefits, the patient was deemed in satisfactory condition to undergo the procedure. The anesthesia plan was to use monitored anesthesia care (MAC). Immediately prior to administration of medications, the patient was re-assessed for adequacy to receive sedatives. The heart rate, respiratory rate, oxygen saturations, blood pressure, adequacy of pulmonary ventilation, and response to care were monitored throughout the procedure. The physical status of the patient was re-assessed after the procedure. After obtaining informed consent, the scope was passed under direct vision. Throughout the procedure, the patient's blood pressure, pulse, and oxygen saturations were monitored continuously. The Duodenoscope was introduced through the mouth, and advanced to the duodenum and used to inject contrast into the bile duct. The ERCP was accomplished without difficulty. The patient tolerated the procedure well. Scope In: 4:34:27 PM Scope Out: 4:53:59 PM Total Procedure Duration Time 0 hours 19 minutes 32 seconds Findings: The cleaning machine operator film was normal. The esophagus was successfully intubated under direct vision. The scope was advanced to a normal major papilla in the descending duodenum without detailed examination of the pharynx, larynx and associated structures, and upper GI tract. The upper GI tract was grossly normal. The bile duct was deeply cannulated with the short-nosed traction sphincterotome. Contrast was injected. I personally interpreted the bile duct images. There was brisk flow of contrast through the ducts. Image quality was adequate. Contrast extended to the entire biliary tree. Opacification of the entire opacified area and entire biliary tree was successful. The maximum diameter of the ducts was 15 mm. The lower third of the main bile duct contained a single localized stenosis 6 mm in length. The entire opacified area, main bile duct and entire biliary tree were severely dilated, with a mass causing an obstruction. The largest diameter was 15 mm. Placement of a long 0.025 inch Jagwire into the biliary tree was attempted. This passed successfully. A 5 mm biliary sphincterotomy was made with a traction (standard) sphincterotome using ERBE electrocautery. There was no post-sphincterotomy bleeding. The biliary tree was swept with a 12 mm balloon starting at the upper third of the main bile duct, middle third of the main bile duct, lower third of the main duct, bifurcation, left intrahepatic duct(s), left main hepatic duct, right intrahepatic duct(s) and right main hepatic duct. Sludge was swept from the duct. All stones were removed. Cells for cytology were obtained by brushing in the lower third of the main bile duct. One 10 Fr by 7 cm temporary stent was placed 5 cm into the common bile duct. Bile flowed through the stent. The stent was in good position. Impression: - A single localized biliary stricture was found in the lower third of the main bile duct. The stricture was indeterminate. - The entire main bile duct and entire biliary tree were severely dilated, with a mass causing an obstruction. - Choledocholithiasis was found. Complete removal was accomplished by biliary sphincterotomy and balloon extraction. - A biliary sphincterotomy was performed. - The biliary tree was swept. - Cells for cytology obtained in the lower third of the main duct. - One temporary stent was placed into the common bile duct. Procedure Code(s): --- Professional --- 42276, Endoscopic retrograde cholangiopancreatography (ERCP); with placement of endoscopic stent into biliary or pancreatic duct, including pre- and post-dilation and guide wire passage, when performed, including sphincterotomy, when performed, each stent [id number], Endoscopic retrograde cholangiopancreatography (ERCP); with removal of calculi/debris from biliary/pancreatic duct(s) 59313, 26, Endoscopic catheterization of the biliary ductal system, radiological supervision and interpretation CPT copyright 2021 [employer]. All rights reserved. The codes documented in this report are preliminary and upon cold rolling coordinator review may be revised to meet current compliance requirements. Martin Baptiste DO 01/25/2025 5:00:10 PM This report has been signed electronically. Number of Addenda: 0 Note Initiated On: 01/25/2025 4:16 PM
--- NOTE | 2025-01-25 17:10 | PCM.POST.ANE ---
Anesthesia: Postop Eval I Current Vital Signs Temperature: 97.7 F Pulse Rate: 82 Blood Pressure: 118/78 Respiratory Rate: 20 Pulse Ox: 96 Oxygen Delivery Method: Room Air Assessment Airway patent: Yes Spontaneous unlabored respirations: Yes Mental status: Awake and Calm nausea: No Vomiting: No Anesthesia Complication: No Fluid Hydration Crystalloid volume administer (ml): 400 Total IV fluid infused: 400 Progress Note Anesthesia document: Postop Eval 1 completed: Yes
[2025-01-25] MEDS: HYDROmorphone 0.5 MG/0.5 ML SYRINGE IV ×2 (18:07→21:20)
[2025-01-25] MEDS: 0.9% Saline Lock 10 ML Syringe IV ×2 (18:07→18:56)
[2025-01-25] MEDS: Potassium Chloride 10mEq/100mL 10 MEQ/100 ML IV.SOLN. 100 MEQ IV BOLUS ×4 (18:12→22:06)
--- NOTE | 2025-01-25 18:20 | CT_ITS ---
PROCEDURE: CHEST WITHOUT CONTRAST 01/25/2025 REASON FOR EXAM: PANCREATIC CANCER TECHNIQUE: Chest CT without contrast. Coronal and Sagittal reconstruction series were provided. One or more dose reduction techniques were used (e.g., Automated exposure control, adjustment of the mA and/or kV according to patient size, use of iterative reconstruction technique RADIATION DOSE SUMMARY: CTDlvol: 11.13 mGy DLP: 417.19 mGycm COMPARISON: None FINDINGS: There is bibasilar scarring. No focal airspace consolidation, pneumothorax, or pleural effusion. I do not see definite suspicious pulmonary nodule. There is no mediastinal mass or adenopathy. The thyroid gland is unremarkable. There is ectasia of the ascending aorta measuring up to 4.9 cm on image 54, series 2. Atherosclerotic coronary calcifications are noted. Heart size is nonenlarged. There is a common bile duct stent across masslike region in the pancreatic head on image 131, series 2. The spleen is unremarkable. The visualized adrenal glands and kidneys are unremarkable. Multiple hepatic lesions are noted which are nonspecific and described in greater detail on the CT abdomen and pelvis from the same day. CT/Chest without Contrast IMPRESSION: No definite evidence of metastatic disease in the thorax. Additional findings as above. Reading Location[facility]
--- NOTE | 2025-01-25 22:10 | PCM.HOSP.N ---
Hospitalist Note Pt s/p ERCP today and is c/o bloating without pains. Likely related to air insufflation or transient slowed gut motility from sedation/ opioids used for the procedure. I ordered metoclopramide 10mg PO x1 and PRN simethicone chews TID.
--- NOTE | 2025-01-25 22:19 | POSTOPAN2_ITS ---
Anesthesia Postop Eval I Sum Postop Eval Completion status Anesthesia document: Postop Eval 1 completed: Yes Anesthesia Postop Eval I Summary Anesthesia Postop Eval I Summary: Anesthesia Postop Eval I: Assessment Summary Airway patent Yes 01/25/25 17:11 [email or web address] Spontaneous unlabored Yes 01/25/25 17:11 [email or web address] respirations Mental status Awake,Calm 01/25/25 17:11 [email or web address] nausea No 01/25/25 17:11 [email or web address] Vomiting No 01/25/25 17:11 [email or web address] Anesthesia Postop Eval I: Fluid Summary Crystalloid volume administer 400 01/25/25 17:11 [email or web address] (ml) Colloids volume administered ( ml) Blood Product volume administered (ml) Total IV fluid infused 400 01/25/25 17:11 [email or web address] Anesthesia Postop Eval I: Summary Notes Anesthesia Complication No 01/25/25 17:11 [email or web address] Anesthesia Complication Comment: Post-operative progress note Anesthesia: Postop Eval II Evaluation Mental status: Awake and Calm Pain Level: 0 nausea: No Vomiting: No Complications Anesthesia Complication: No
--- NOTE | 2025-01-25 22:19 | PCM.POSTANE2 ---
Anesthesia Postop Eval I Sum Postop Eval Completion status Anesthesia document: Postop Eval 1 completed: Yes Anesthesia Postop Eval I Summary Anesthesia Postop Eval I Summary: Anesthesia Postop Eval I: Assessment Summary Airway patent Yes 01/25/25 17:11 [email or web address] [email or web address] Spontaneous unlabored Yes 01/25/25 17:11 [email or web address] [email or web address] respirations Mental status Awake,Calm 01/25/25 17:11 [email or web address] [email or web address] nausea No 01/25/25 17:11 [email or web address] Vomiting No 01/25/25 17:11 [email or web address] [email or web address] Anesthesia Postop Eval I: Fluid Summary Crystalloid volume administer 400 01/25/25 17:11 [email or web address] [email or web address] (ml) Colloids volume administered ( ml) Blood Product volume administered (ml) Total IV fluid infused 400 01/25/25 17:11 [email or web address] [email or web address] Anesthesia Postop Eval I: Summary Notes Anesthesia Complication No 01/25/25 17:11 [email or web address] Anesthesia Complication Comment: Post-operative progress note Anesthesia: Postop Eval II Evaluation Mental status: Awake and Calm Pain Level: 0 nausea: No Vomiting: No Complications Anesthesia Complication: No
[2025-01-26] VITALS (12 sets, daily range): BP systolic 153–166; BP diastolic 89–102; PULSE 86–100; RESP 16; TEMP 36.7–37.2; O2SAT 94–98; BMI 30.5
[2025-01-26] MEDS: HYDROmorphone 0.5 MG/0.5 ML SYRINGE IV (00:51)
[2025-01-26 06:37] LABS: Hematocrit 37.9 % (40-54); Hemoglobin 12.9 g/dL (13.0-16.5); Immature Granulocytes Count 0.100 X10^3/uL (0.0-0.0); Mean Corp Hgb Conc 34.0 g/dL (32-36); Mean Corpuscular Volume 83.7 fL (80-94); Mean Platelet Vol. 11.3 fl (6.2-12.0); NRBC Flagged by Analyzer 0 % (0-5); Platelet Count 285 K/mm3 (150-450); RBC Distribution Width CV 16.3 % (11.6-14.6); RBC Distribution Width SD 49.5 fl (35.1-43.9); Red Blood Count 4.53 M/mm3 (4.6-6.2); White Blood Count 11.5 K/mm3 (4.4-11.0)
[2025-01-26 07:06] LABS: AST(SGOT) 410 U/L (<=37); Alanine Aminotransfer ALT/SGPT 614 U/L (<=46); Albumin, Serum 3.9 g/dL (3.5-5.0); Alkaline Phosphatase 650 U/L (40-129); Anion Gap 13 (5-15); BUN 10 mg/dL (4-19); BUN/Creat Ratio 15.0 RATIO (10-20); Calcium,Total 9.2 mg/dL (7.6-11.0); Carbon Dioxide 20.4 mmol/L (21.0-32.0); Chloride 101 mmol/L (98-108); Estimated Creatinine Clearance 121.47 ml/min (50-250); Globulin 3.6 g/dL (2.2-4.2); Glucose 136 mg/dL (70-99); Potassium 3.9 mmol/L (3.3-5.1)
[2025-01-26] MEDS: Senna/Docusate Sodium 1 Tablet 2 TABLET PO ×2 (08:47→21:54)
--- NOTE | 2025-01-26 09:47 | PCM.PN.HOSP ---
Subjective Subjective Had ERCP yesterday with stent placement and choledocholithiasis was found, cells for cytology were also sent Objective Data Objective Data Vital Signs: Vital Signs Temp Pulse Resp BP Pulse Ox O2 Del Method 98.7 F 93 16 155/98 H 97 Room Air 01/26/25 08:38 01/26/25 08:38 01/26/25 08:38 01/26/25 08:38 01/26/25 08:38 01/26/25 08:40 Oxygen Delivery Method Room Air Weight: 183 lb 6.793 oz Body Mass Index (BMI) 30.5 Intake & Output: Intake and Output for Last 24 Hours 01/25/25 01/26/25 01/27/25 03:59 03:59 03:59 Intake Total 1250 / 1250 2887.5 / 2887.5 200 / 200 Output Total 500 / 500 725 / 725 200 / 200 Balance 750 / 750 2162.5 / 2162.5 0 / 0 Lab / Micro Data 01/26/25 05:47 01/26/25 05:47 Labs: Laboratory Results - last 24 hr 01/24/25 16:37: CA 19-9 Antigen 9 01/25/25 11:55: POC Glucose 126 H 01/25/25 18:22: POC Glucose 120 H 01/25/25 21:08: POC Glucose 132 H 01/26/25 05:47: WBC 11.5 H, RBC 4.53 L, Hgb 12.9 L, Hct 37.9 L, MCV 83.7, MCH 28.5, MCHC 34.0, RDW Std Deviation 49.5 H, RDW Coeff of Amie 16.3 H, Plt Count 285, MPV 11.3, Immature Gran % (Auto) 0.900, Neut % (Auto) 85.8 H, Lymph % (Auto) 9.2 L, [place] % (Auto) 3.9, Eos % (Auto) 0.0, Baso % (Auto) 0.2, Absolute Neuts (auto) 9.9 H, Absolute Lymphs (auto) 1.06, Nucleated RBC % 0, Sodium 135, Potassium 3.9, Chloride 101, Carbon Dioxide 20.4 L, Anion Gap 13, BUN 10, Creatinine 0.65 L, Estim Creat Clear Calc 121.47, Est GFR (MDRD) Non-Af 108, BUN/Creatinine Ratio 15.0, Glucose 136 H, Calcium 9.2, Total Bilirubin 6.79 H, AST 410 H, ALT 614 H, Alkaline Phosphatase 650 H, Total Protein 7.5, Albumin 3.9, Globulin 3.6, Albumin/Globulin Ratio 1.1 01/26/25 07:30: ROMEO-1 Antibody TNP, Sm (Molina) Antibody TNP, CITY CARRIER ASSISTANT Antibody TNP, Scl-70 Scleroderma Ab TNP, Antichromatin Antibodies TNP, Centromere B Antibody TNP Radiography Diagnostic Testing: Radiology Impression ERCP X-Ray 01/25/25 08:30 IMPRESSION: As above. Reading Location: [address] 01/25/25 18:20 IMPRESSION: No definite evidence of metastatic disease in the thorax. Additional findings as above. Reading Location: [facility] Physical Exam Narrative General: Alert, Oriented x3, Cooperative, No apparent distress HEENT: Atraumatic, PERRLA, EOMI, Normocephalic Oral: Moist Mucosa Neck: Supple, No JVD Lungs: Diminished, Normal air movement, No rhonchi, No wheeze, No rales Cardiovascular: Regular rate, Regular Rhythm, Normal S1, Normal S2, No murmurs Abdomen: Soft, Non Tender, Non-Distended, No Hepato-splenomegaly Extremities: No edema, Capillary Refill Less than 3 Seconds Skin: No rashes, No breakdown Musculoskeletal: No Tenderness to Palpation of Joints or Extremities Neurological: No focal neurological deficits, moves all extremities Psych/Mental Status: Normal Affect, Appropriate Assessment & Plan Assessment/Plan (1) Dilated bile duct: (2) Mass of head of pancreas: PLAN: Plan 1. Pancreatic head mass with hyperbilirubinemia and transaminitis and biliary duct dilatation ?Appreciate gastroenterology assistance ? CA 19-9 is pending ? LFTs remain elevated as is his bilirubin ?Continue with p.o. intake ? He was having some nausea and vomiting as well as some bloating so MRI is pending for further evaluation of this pancreatic mass 2. Hypokalemia ? Will monitor and replace 3. Hyperglycemia and elevated blood pressure ? He is on sliding scale insulin and Accu-Cheks ? A1c is 5.9, he is not diabetic ? Blood pressures are elevated but this is likely related to current diagnosis and stress ? He has been started on admission on Norvasc, will hold and see if his blood pressure resolves after intervention for his pancreatic head mass DVT: Lovegladysx Charges/Coding Visit Charges Inpatient E&M: 66643 Subs Hosp L2
[2025-01-26] MEDS: Lactated Ringers 1,000 ML 100 ML IV ×2 (09:48→21:54)
--- NOTE | 2025-01-26 10:50 | PN.GI_ITS ---
Subjective Subjective 59y/o male who goes by [employer] with no significant PMH presented with dark urine for one month and scleral icterus noted one week prior to admission.?Currently reports bloating and one episode of emesis after eating this morning.?Denies abdominal pain, nausea, fever, chills, chest pain, dyspnea, headaches, or vision changes. No BM in two days, passing flatus. - RAYMOND at bedside Objective Data Objective Data - Afebrile, receiving IV fluids (LR at 100). - CT: Dilated intrahepatic and extrahepatic biliary ducts, distended gallbladder, fullness of pancreatic head, scattered hepatic cysts. - ERCP: Severely dilated biliary tree, choledocholithiasis with complete stone removal, mass causing obstruction in lower third of main bile duct, temporary stent placed, cytology obtained. - Labs: T. bili 6.79 (down from 9.37), AST 410 (up from 319), ALT 614 (up from 531), ALP 650 (down from peak 872), WBC 11.5, HGB 12.9, ANC 9.9. Vital Signs: Vital Signs Temp Pulse Resp BP Pulse Ox O2 Del Method 98.7 F 93 16 155/98 H 97 Room Air 01/26/25 08:38 01/26/25 08:38 01/26/25 08:38 01/26/25 08:38 01/26/25 08:38 01/26/25 08:40 Oxygen Delivery Method Room Air Weight: 183 lb 6.793 oz Body Mass Index (BMI) 30.5 Intake & Output: Intake and Output for Last 24 Hours 01/24/25 01/25/25 01/26/25 23:59 23:59 23:59 Intake Total 1000 / 1000 2745 / 2995 1592.5 / 1592.5 Output Total 500 / 500 725 / 725 200 / 200 Balance 500 / 500 2020 / 2270 1392.5 / 1392.5 Lab / Micro Data 01/26/25 05:47 01/26/25 05:47 Labs: Laboratory Results - last 24 hr 01/24/25 16:37: CA 19-9 Antigen 9 01/25/25 11:55: POC Glucose 126 H 01/25/25 18:22: POC Glucose 120 H 01/25/25 21:08: POC Glucose 132 H 01/26/25 05:47: WBC 11.5 H, RBC 4.53 L, Hgb 12.9 L, Hct 37.9 L, MCV 83.7, MCH 28.5, MCHC 34.0, RDW Std Deviation 49.5 H, RDW Coeff of Amie 16.3 H, Plt Count 285, MPV 11.3, Immature Gran % (Auto) 0.900, Neut % (Auto) 85.8 H, Lymph % (Auto) 9.2 L, [place] % (Auto) 3.9, Eos % (Auto) 0.0, Baso % (Auto) 0.2, Absolute Neuts (auto) 9.9 H, Absolute Lymphs (auto) 1.06, Nucleated RBC % 0, Sodium 135, Potassium 3.9, Chloride 101, Carbon Dioxide 20.4 L, Anion Gap 13, BUN 10, C reatinine 0.65 L, Estim Creat Clear Calc 121.47, Est GFR (MDRD) Non-Af 108, BUN/Creatinine Ratio 15.0, Glucose 136 H, Calcium 9.2, Total Bilirubin 6.79 H, A ST 410 H, ALT 614 H, Alkaline Phosphatase 650 H, Total Protein 7.5, Albumin 3.9, Globulin 3.6, Albumin/Globulin Ratio 1.1 01/26/25 07:30: ROMEO-1 Antibody TNP, Sm (Molina) Antibody TNP, WELDING MACHINE OPERATOR THERMIT Antibody TNP, Scl-70 Scleroderma Ab TNP, Antichromatin Antibodies TNP, Centromere B Antibody TNP Radiography Diagnostic Testing: Radiology Impression ERCP X-Ray 01/25/25 08:30 IMPRESSION: As above. Reading Location: [address] 01/25/25 18:20 IMPRESSION: No definite evidence of metastatic disease in the thorax. Additional findings as above. Reading Location: [facility] Physical Exam Narrative A&Ox3, pleasant Const no apparent distress and average body habitus General Appearance: well developed Eyes conjunctivae normal Neck full ROM Resp Effort and Inspection: able to speak in complete sentences and symmetric chest movement Auscultation: clear to auscultation bilaterally GI GI Narrative: Abdomen is softly distended, BS+x4, no pain with palpation Extremity Extremity Narrative: MAEx4 Skin no rashes or lesions noted and skin turgor normal Assessment & Plan Assessment/Plan (1) Obstructive jaundice: PLAN: Secondary to choledocholithiasis, with possible underlying mass in the pancreatic head or distal bile duct. S/P ERCP with temporary stent placement 01/25/2025. Cytology, IgG4, CA19-9 pending. MRI with pancreatic protocol ordered. Anticipate EUS as OP, referral to Dr. Kely Lazo at [facility] P: [phone], F: [phone]. PLAN: Plan 59y/o male presents with obstructive jaundice, dark urine, and scleral icterus with imaging revealing severe biliary dilation, choledocholithiasis, and a possible mass at the pancreatic head causing distal bile duct obstruction. ERCP?01/25/2025 main bile duct and entire biliary tree were severely dilated, with a mass causing an obstruction. The largest diameter was 15 mm. Temporary CBD stent placed. Despite successful stone extraction and stent placement, persistent cholestatic and hepatocellular enzyme elevation raises concern for ongoing obstruction, stricture, or underlying malignancy.?I have ordered an MRI with pancreatic protocol for further evaluation of fullness noted on CT of pancreatic head. EUS referral is placed for definitive tissue diagnosis.?Pending results for CA 19-9 and IgG4 will help clarify the etiology.? - Regular diet. Continue supportive care with IV fluids until tolerating PO w/o further episodes of emesis. - Continue to monitor CBC, CMP - Monitor for clinical changes (pain, fever, worsening jaundice). - Await cytology results from ERCP brushing. - Await results for CA 19-9 and IgG4? - MRI pancreas protocol pending for further evaluation of pancreatic head mass. - Upon discharge place referral for endoscopic ultrasound (EUS) to Dr. Kely Lazo. Dr. Kely Lazo P: [phone] F: [phone] [place] [address], [address] [place] [address] - Provide copies of all imaging studies on disc to patient at discharge for Dr. Lazo.
--- NOTE | 2025-01-26 10:52 | MRI_ITS ---
PROCEDURE: MRI ABD WITH AND W/O CONTRAST 01/26/2025 REASON FOR EXAM: PANCREATIC HEAD MASS TECHNIQUE: Procedure Code: MRIABDWW Modality: MR Procedure: MRI ABD WITH AND W/O CONTRAST Multi planer multisequence MRI of the abdomen is performed prior to and after the intravenous administration of 15 cc of Clariscan. COMPARISON: CT of the abdomen and pelvis dated 01/24/2025 FINDINGS: Liver: Multiple hepatic cysts. No solid enhancing mass. Pronounced intrahepatic biliary ductal dilatation. No abnormal enhancement of the biliary tree. Biliary: Severe intra and extrahepatic biliary ductal dilatation with the main common bile duct measuring 17 mm. A CBD stent is in place. No abnormal enhancement pattern to suggest cholangitis. The gallbladder is distended. No filling defects seen. No wall thickening or wall enhancement noted. Pancreas: Mass of the head of the pancreas measuring a proximally 3 x 2.3 x 3.5 cm. This encases the distal CBD and distal pancreatic duct. There is atrophy of the pancreatic body and tail with dilatation of the upstream pancreatic duct. The mass appears to abut portions of the superior mesenteric vein at the portal confluence. SMA is well delineated with fat. There is no encasement. Inferior vena cava has a clear separation from the lesion. Spleen: Normal Adrenals: Normal Kidneys: Unremarkable. No mass. No hydronephrosis. Small renal cysts. Peritoneum / Retroperitoneum: No ascites. No retroperitoneal lymphadenopathy or mass. Lymph Nodes: Unremarkable. Major Vessels: Normal-sized aorta. Normal inferior vena cava. Bones: No evidence of metastatic disease. MRI/MRI Abd WITH and W/O Contrast IMPRESSION: 3.4 x 3 cm mass of the head of the pancreas encasing the CBD and distal pancrea tic duct. The mass appears to abut closely the confluence of the portal vein and superior mesenteric vein. Normal appearance of the SMA. Severe intra and extrahepatic biliary ductal dilatation as well as distention o f the gallbladder. CBD stent in place. No evidence to suggest cholangitis. No evidence of metastatic disease to the liver. Numerous benign-appearing hepa tic cysts noted. No evidence of cholangitis. Reading Location: [id number]
[2025-01-26] MEDS: FLU VACCINE 2025-26(6MOS UP) 45 MCG/0.5 ML SYRINGE IM (11:01)
--- NOTE | 2025-01-26 17:26 | PCM.HOSP.N ---
Hospitalist Note Collaborated with GI RODNEY, we reviewed CT A&P from 01.24.25 demonstrating moderate stool burden in colon; pt reports lack of complete BM for several days, if not a week, in addition to continued c/o of abdominal bloating, nausea. I recommend Dulcolax rectal suppository tonight at HS, sooner if preferred by pt, and scheduling the Senna/Docusate tab twice daily in place of PRN usage.
[2025-01-26] MEDS: 0.9% Saline Lock 10 ML Syringe IV (20:56)
[2025-01-27] VITALS (10 sets, daily range): BP systolic 131–166; BP diastolic 73–109; PULSE 76–96; RESP 16; TEMP 36.5–37.2; O2SAT 93–98; BMI 30.4
[2025-01-27 06:37] LABS: Hematocrit 34.9 % (40-54); Hemoglobin 12.0 g/dL (13.0-16.5); Immature Granulocytes Count 0.120 X10^3/uL (0.0-0.0); Mean Corp Hgb Conc 34.4 g/dL (32-36); Mean Corpuscular Volume 83.5 fL (80-94); Mean Platelet Vol. 10.7 fl (6.2-12.0); NRBC Flagged by Analyzer 0 % (0-5); Platelet Count 247 K/mm3 (150-450); RBC Distribution Width CV 16.6 % (11.6-14.6); RBC Distribution Width SD 50.3 fl (35.1-43.9); Red Blood Count 4.18 M/mm3 (4.6-6.2); White Blood Count 16.6 K/mm3 (4.4-11.0)
[2025-01-27 07:22] LABS: AST(SGOT) 516 U/L (<=37); Alanine Aminotransfer ALT/SGPT 686 U/L (<=46); Albumin, Serum 3.7 g/dL (3.5-5.0); Alkaline Phosphatase 561 U/L (40-129); Anion Gap 10 (5-15); BUN 11 mg/dL (4-19); BUN/Creat Ratio 16.3 RATIO (10-20); Calcium,Total 8.9 mg/dL (7.6-11.0); Carbon Dioxide 23.9 mmol/L (21.0-32.0); Chloride 102 mmol/L (98-108); Estimated Creatinine Clearance 119.49 ml/min (50-250); Globulin 3.3 g/dL (2.2-4.2); Glucose 129 mg/dL (70-99); Potassium 3.8 mmol/L (3.3-5.1)
[2025-01-27] MEDS: Lactated Ringers 1,000 ML 100 ML IV ×2 (08:03→17:14)
[2025-01-27] MEDS: Senna/Docusate Sodium 1 Tablet 2 TABLET PO ×2 (08:07→20:10)
[2025-01-27] MEDS: HYDROmorphone 0.5 MG/0.5 ML SYRINGE IV ×2 (13:41→22:24)
--- NOTE | 2025-01-27 14:52 | CT_ITS ---
PROCEDURE: ABDOMEN/PELVIS W IV CONT ONLY 01/27/2025 REASON FOR EXAM: INCREASED LFT AND WBC TECHNIQUE: Procedure Code: CTABDPELIV Modality: CT Procedure: ABDOMEN/PELVIS W IV CONT ONLY Coronal and Sagittal reconstruction series were provided. CONTRAST: Isovue-300 VOLUME: 100 mL One or more dose reduction techniques were used (e.g., Automated exposure control, adjustment of the mA and/or kV according to patient size, use of iterative reconstruction technique. RADIATION DOSE SUMMARY: CTDlvol: 13 mGy DLP: 681.1 mGycm COMPARISON: Prior study dated January 24, 2025. FINDINGS: Lung bases: Atelectasis at the lung bases worse on the right lung base. The heart is nonenlarged. Liver: Stable small hepatic cysts. Intrahepatic biliary ductal dilatation. Common bile duct remains dilated although to a lesser degree as compared to prior study. Gallbladder: There is evidence of intrahepatic biliary ductal dilatation. This is similar to prior examination. A stent is seen within the common bile duct with the distal tip in the duodenum. The gallbladder is distended. Sludge is seen within the gallbladder lumen. Spleen: Normal size. Pancreas: Dilatation of the pancreatic duct. Soft tissue mass seen in the region of the head of the pancreas corresponds with the MRI findings. Adrenals: Unremarkable Kidneys: Normal renal sizes. No hydronephrosis. Bladder: Unremarkable Prosthetic enlargement with indentation of the bladder base. Bowel: No bowel obstruction. Appendix: The appendix is not identified. There is no inflammatory process identified in the right lower quadrant to suggest appendicitis. Lymph nodes: No suspicious lymph node enlargement. Vasculature: Mild diffuse atherosclerotic calcifications are noted. Peritoneum / Retroperitoneum: Unremarkable Bones: Degenerative changes of the spine. CT/Abdomen/Pelvis W IV Cont ONLY IMPRESSION: Stable intrahepatic and extrahepatic biliary ductal dilatation. Biliary stent is seen. The remainder of the examination is unchanged. Reading Location: [place] [address]
[2025-01-27 15:07] LABS: Anti-Chromatin <0.2 AI (0.0-0.9); Anti-Jo <0.2 AI (0.0-0.9); Anti-dsDNA Ab <1 IU/mL (0-9); SJOGREN'S Anti-SS-A test < 0.2 AI (0.0-0.9); SJOGREN'S Anti-SS-B test < 0.2 AI (0.0-0.9)
--- NOTE | 2025-01-27 15:26 | PCM.PN.HOSP ---
Subjective Subjective Still having bloating and not much appetite. LFTs and white count are elevated Objective Data Objective Data Vital Signs: Vital Signs Temp Pulse Resp BP Pulse Ox O2 Del Method 98.3 F 85 16 161/109 H 94 Room Air 01/27/25 11:51 01/27/25 11:51 01/27/25 11:51 01/27/25 11:51 01/27/25 11:51 01/27/25 13:24 Oxygen Delivery Method Room Air Weight: 182 lb 15.739 oz Body Mass Index (BMI) 30.4 Intake & Output: Intake and Output for Last 24 Hours 01/26/25 01/27/25 01/28/25 03:59 03:59 03:59 Intake Total 2887.5 / 2887.5 3300 / 3300 1100 / 1100 Output Total 725 / 725 200 / 200 700 / 700 Balance 2162.5 / 2162.5 3100 / 3100 400 / 400 Lab / Micro Data 01/27/25 06:24 01/27/25 06:24 Labs: Laboratory Results - last 24 hr 01/25/25 05:12: Tumor Marker AFP 8.1, CA 19-9 Antigen 8 01/26/25 07:30: ROMEO-1 Antibody <0.2, SS-A/Ro IgG Antibody < 0.2, SS-B/La IgG Antibody < 0.2, Sm (Molina) Antibody <0.2, FLASH RANGING CREWMEMBER Antibody <0.2, Scl-70 Scleroderma Ab <0.2, Double Strand DNA Ab <1, Antichromatin Antibodies <0.2, Centromere B Antibody <0.2 01/26/25 16:31: POC Glucose 147 H 01/26/25 21:51: POC Glucose 141 H 01/27/25 06:24: WBC 16.6 H, RBC 4.18 L, Hgb 12.0 L, Hct 34.9 L, MCV 83.5, MCH 28.7, MCHC 34.4, RDW Std Deviation 50.3 H, RDW Coeff of Amie 16.6 H, Plt Count 247, MPV 10.7, Immature Gran % (Auto) 0.700, Neut % (Auto) 80.6 H, Lymph % (Auto) 10.4 L, [place] % (Auto) 8.1, Eos % (Auto) 0.0, Baso % (Auto) 0.2, Absolute Neuts (auto) 13.4 H, Absolute Lymphs (auto) 1.72, Nucleated RBC % 0, Sodium 136, Potassium 3.8, Chloride 102, Carbon Dioxide 23.9, Anion Gap 10, BUN 11, Creatinine 0.66 L, Estim Creat Clear Calc 119.49, Est GFR (MDRD) Non-Af 108, BUN/Creatinine Ratio 16.3, Glucose 129 H, Calcium 8.9, Total Bilirubin 9.49 H, AST 516 H, ALT 686 H, Alkaline Phosphatase 561 H, Total Protein 7.0, Albumin 3.7, Globulin 3.3, Albumin/Globulin Ratio 1.1 01/27/25 06:33: POC Glucose 136 H 01/27/25 11:03: POC Glucose 133 H Radiography Diagnostic Testing: Radiology Impression Abdomen MRI 01/26/25 10:52 IMPRESSION: 3.4 x 3 cm mass of the head of the pancreas encasing the CBD and distal pancreatic duct. The mass appears to abut closely the confluence of the portal vein and superior mesenteric vein. Normal appearance of the SMA. Severe intra and extrahepatic biliary ductal dilatation as well as distention of the gallbladder. CBD stent in place. No evidence to suggest cholangitis. No evidence of metastatic disease to the liver. Numerous benign-appearing hepatic cysts noted. No evidence of cholangitis. Reading Location: [facility] Abdomen/Pelvis CT 01/27/25 14:52 IMPRESSION: Stable intrahepatic and extrahepatic biliary ductal dilatation. Biliary stent is seen. The remainder of the examination is unchanged. Reading Location: [facility] Physical Exam Narrative General: Alert, Oriented x3, Cooperative, No apparent distress HEENT: Atraumatic, PERRLA, EOMI, Normocephalic Oral: Moist Mucosa Neck: Supple, No JVD Lungs: Diminished, Normal air movement, No rhonchi, No wheeze, No rales Cardiovascular: Regular rate, Regular Rhythm, Normal S1, Normal S2, No murmurs Abdomen: Soft, Non Tender, slightly bloated, No Hepato-splenomegaly Extremities: No edema, Capillary Refill Less than 3 Seconds Skin: No rashes, No breakdown Musculoskeletal: No Tenderness to Palpation of Joints or Extremities Neurological: No focal neurological deficits, moves all extremities Psych/Mental Status: Normal Affect, Appropriate Assessment & Plan Assessment/Plan (1) Dilated bile duct: (2) Mass of head of pancreas: PLAN: Plan 1. Pancreatic head mass with hyperbilirubinemia and transaminitis and biliary duct dilatation ?Appreciate gastroenterology assistance ? CA 19-9 is negative ? LFTs and bilirubin have risen again ? Discussed current issues with GI, recommended CT of the abdomen and pelvis with contrast to evaluate the position of the stent ?Continue with p.o. intake 2. Hypokalemia ? Will monitor and replace 3. Hyperglycemia and elevated blood pressure ? A1c is 5.9, he is not diabetic ? Blood pressures are elevated but this is likely related to current diagnosis and stress ? He has been started on admission on Norvasc, will hold and see if his blood pressure resolves after intervention for his pancreatic head mass DVT: Lovenox Charges/Coding Visit Charges Inpatient E&M: 21295 Subs Hosp L2
[2025-01-27 17:08] LABS: Cytoplasmic Ab (C-ANCA) <1:20 titer (Neg:<1:20); IgG, Quant 1641 mg/dL (603-1613); Immunoglobulin G, Subclass 1 850 mg/dL (248-810); Immunoglobulin G, Subclass 2 670 mg/dL (130-555); Immunoglobulin G, Subclass 3 43 mg/dL (15-102); Immunoglobulin G, Subclass 4 34 mg/dL (2-96); Perinuclear Ab (P-ANCA) <1:20 titer (Neg:<1:20)
--- NOTE | 2025-01-27 18:26 | PN_ITS ---
Progress Note ?A 59-year-old gentleman with a known pancreatic head mass, suspected adenocarcinoma, presents with new-onset abdominal pain and bloating. He previou sly underwent an ERCP with brushings and bile duct stenting for painless jaundice, which had been improving based on prior liver function test.. However, his LFTs have recently worsened, and he is experiencing a re-emergence of symptoms. The abdominal pain is described as dull and crampy, and the bloating is intermittent throughout the day. Physical Exam Narrative General: Alert, Oriented x3, Cooperative, No apparent distress HEENT: Atraumatic, PERRLA, EOMI, Normocephalic Oral: Moist Mucosa Neck: Supple, No JVD Lungs: Diminished, Normal air movement, No rhonchi, No wheeze, No rales Cardiovascular: Regular rate, Regular Rhythm, Normal S1, Normal S2, No murmurs Abdomen: Soft, Non Tender, slightly bloated, No Hepato-splenomegaly Extremities: No edema, Capillary Refill Less than 3 Seconds Skin: No rashes, No breakdown Musculoskeletal: No Tenderness to Palpation of Joints or Extremities Neurological: No focal neurological deficits, moves all extremities Psych/Mental Status: Normal Affect, Appropriate Assessment & Plan Assessment/Plan (1) Obstructive jaundice: (2) Hyperbilirubinemia: (3) Transaminitis: (4) Dilated bile duct: (5) Mass of head of pancreas: PLAN: Assessment * Malignant biliary obstruction secondary to migrated biliary stent:?The patient has a known pancreatic head mass causing biliary obstruction. While a stent was placed to relieve this, the current CT shows the stent has migrated proximally, leading to recurrent obstruction, rising LFTs, abdominal pain, and bloating. * Pancreatic head adenocarcinoma, suspected:?Diagnosis based on radiologic imaging and brushings. Management is ongoing, and the current biliary obstruction needs to be addressed. Plan * Procedure:?Plan for repeat ERCP to remove the migrated stent and place a new stent, ideally a metal stent, for more durable palliation of the malignant obstruction. * Labs:?Repeat LFTs and complete blood count (CBC) to monitor liver function and assess for cholangitis. * Symptom management: * Initiate or adjust pain management for abdominal pain. * Provide symptomatic relief for bloating. * Started on IV antibiotics * Oncology:?Discuss with oncology team regarding the next steps for pancreatic adenocarcinoma treatment following successful biliary drainage and endoscopic ultrasound * Patient education:?Explain the reason for recurrent symptoms and the need for another procedure to the patient and family. Explain the risks and benefits of repeat ERCP. Visit Charges Inpatient E&M: 80449 [facility] Hosp L3
[2025-01-27] MEDS: Piperacil/Tazobactam 3.375 GM in 0.9% Normal Saline (50mL MB+) 50 ML IV (18:59)
[2025-01-27] MEDS: 0.9% Normal Saline (1000mL) 1,000 ML 100 ML IV (20:02)
[2025-01-28] VITALS (17 sets, daily range): BP systolic 127–163; BP diastolic 80–100; PULSE 79–105; RESP 16; TEMP 36.4–37.2; O2SAT 93–98; BMI 30.6
[2025-01-28] MEDS: 0.9% Normal Saline (1000mL) 1,000 ML 100 ML IV ×2 (05:04→16:26)
[2025-01-28] MEDS: Piperacil/Tazobactam 3.375 GM in 0.9% Normal Saline (50mL MB+) 50 ML IV ×3 (05:06→21:50)
[2025-01-28 06:07] LABS: Hematocrit 35.1 % (40-54); Hemoglobin 11.9 g/dL (13.0-16.5); Immature Granulocytes Count 0.100 X10^3/uL (0.0-0.0); Mean Corp Hgb Conc 33.9 g/dL (32-36); Mean Corpuscular Volume 85.0 fL (80-94); Mean Platelet Vol. 10.7 fl (6.2-12.0); NRBC Flagged by Analyzer 0 % (0-5); Platelet Count 250 K/mm3 (150-450); RBC Distribution Width CV 16.6 % (11.6-14.6); RBC Distribution Width SD 51.3 fl (35.1-43.9); Red Blood Count 4.13 M/mm3 (4.6-6.2); White Blood Count 12.2 K/mm3 (4.4-11.0)
[2025-01-28 06:59] LABS: AST(SGOT) 396 U/L (<=37); Alanine Aminotransfer ALT/SGPT 658 U/L (<=46); Albumin, Serum 3.5 g/dL (3.5-5.0); Alkaline Phosphatase 508 U/L (40-129); Anion Gap 10 (5-15); BUN 7 mg/dL (4-19); BUN/Creat Ratio 11.9 RATIO (10-20); Calcium,Total 8.4 mg/dL (7.6-11.0); Carbon Dioxide 22.8 mmol/L (21.0-32.0); Chloride 102 mmol/L (98-108); Estimated Creatinine Clearance 129.58 ml/min (50-250); Globulin 2.9 g/dL (2.2-4.2); Glucose 103 mg/dL (70-99); Potassium 3.7 mmol/L (3.3-5.1)
--- NOTE | 2025-01-28 11:15 | FLU_PTH ---
PATIENT: JUAN C MOREL LOC: [facility] [place] U#:[id number] AGE/SX: 59/M ROOM: [facility] RE01/24/[address]: Dr. Ellen Mcqueen MD : 1965 BED: 1 DIS: 01/29/2025 SPEC #: [id number] RECD: 01/28/25 14:10 STATUS: CHRISTY REElizabeth #: [id number] TRAE: 01/28/25 11:[address]: Ellen Mcqueen DEPT: CYTOLOGY RECD BY: Rubi Escalante ENTERED: 01/31/25 08:39 SP TYPE: Fluid OTHR DR: DO Dr. Amador Lara MD Dr. Prakash Chand, MD Dr. Rahsaan Friend, DO Heather Evans ICE HANDLER-C Lana Magdaleno ICE HANDLER-C DIONI Guy, [facility], ICE HANDLER-C Tissues: Bile duct, NOS Procedures: Special Stain Group II Surgery Specimen Level III Surgery Specimen Level IV Cytospin Fluid HEADER OPERATION: ERCP, stent removal, balloon dilation, Stent PRE-OP DIAGNOSIS: Obstructive jaundice, hyperbilirubinemia, transaminitis, dilated bile duct, mass of head of pancreas TISSUE SUBMITTED: A- Biliary stent for cytology DIAGNOSIS CYTOLOGY A. Biliary stent, cytology: * No malignant cells are identified CYTOLOGY STUDY Slides are reviewed. CYTOLOGY GROSS A. Received is 10 cm black-blue stent with 0.4ml red-bloody material labeled with the patient's name and and designated per the requisition as Biliary stent. Submitted for cytology and cell block preparation. 01/31/2025 CPT: 22266,75613
--- NOTE | 2025-01-28 12:12 | NURSING ---
pt to endo
--- NOTE | 2025-01-28 12:12 | ANES.CONFIRM ---
Anesthesia: Confirm Documents Multiple Procedures on Account (2) Confirmed Documents: Yes
--- NOTE | 2025-01-28 12:13 | ANES.CONFIRM ---
Anesthesia: Confirm Documents Multiple Procedures on Account (2) Confirmed Documents: Yes
[2025-01-28] MEDS: 0.9% Normal Saline (1000mL) 1,000 ML 15 ML IV (12:33)
--- NOTE | 2025-01-28 12:34 | PN.HOSP_ITS ---
Subjective Subjective Bloating is little bit better after having some bowel movements, leukocytosis improved after the initiation of antibiotics Objective Data Objective Data Vital Signs: Vital Signs Temp Pulse Resp BP Pulse Ox O2 Del Method 98.1 F 79 16 154/92 H 95 Room Air 01/28/25 11:38 01/28/25 11:38 01/28/25 11:38 01/28/25 11:38 01/28/25 11:38 01/28/25 11:38 Oxygen Delivery Method Room Air Weight: 183 lb 13.848 oz Body Mass Index (BMI) 30.6 Intake & Output: Intake and Output for Last 24 Hours 01/27/25 01/28/25 01/29/25 03:59 03:59 03:59 Intake Total 3300 / 3300 2245.00 / 2245.00 1665.00 / 1665.00 Output Total 200 / 200 1150 / 1150 250 / 250 Balance 3100 / 3100 1095.00 / 1095.00 1415.00 / 1415.00 Lab / Micro Data 01/28/25 05:47 01/28/25 05:47 Labs: Laboratory Results - last 24 hr 01/26/25 07:30: IgG Total 1641 H, IgG1 850 H, IgG2 670 H, IgG3 43, IgG4 34, c- ANCA Antibody <1:20, Atypical p-ANCA <1:20, p-ANCA Antibody <1:20, ROMEO-1 Antibody <0.2, SS-A/Ro IgG Antibody < 0.2, SS-B/La IgG Antibody < 0.2, Sm (Molina) Antibody <0.2, MOVIE SHOT CAMERA OPERATOR Antibody <0.2, Scl-70 Scleroderma Ab <0.2, Double Strand DNA Ab <1, Antichromatin Antibodies <0.2, Centromere B Antibody <0.2 01/28/25 05:47: WBC 12.2 H, RBC 4.13 L, Hgb 11.9 L, Hct 35.1 L, MCV 85.0, MCH 28.8, MCHC 33.9, RDW Std Deviation 51.3 H, RDW Coeff of Amie 16.6 H, Plt Count 250, MPV 10.7, Immature Gran % (Auto) 0.800, Neut % (Auto) 71.6 H, Lymph % (Auto) 15.6 L, Spencer % (Auto) 11.3 H, Eos % (Auto) 0.3, Baso % (Auto) 0.4, A bsolute Neuts (auto) 8.7 H, Absolute Lymphs (auto) 1.90, Nucleated RBC % 0, Sodium 135, Potassium 3.7, Chloride 102, Carbon Dioxide 22.8, Anion Gap 10, BUN 7, Creatinine 0.61 L, Estim Creat Clear Calc 129.58, Est GFR (MDRD) Non-Af 111, BUN/Creatinine Ratio 11.9, Glucose 103 H, Calcium 8.4, Total Bilirubin 9.22 H, A ST 396 H, ALT 658 H, Alkaline Phosphatase 508 H, Total Protein 6.4, Albumin 3.5, Globulin 2.9, Albumin/Globulin Ratio 1.2 Radiography Diagnostic Testing: Radiology Impression Abdomen/Pelvis CT 01/27/25 14:52 IMPRESSION: Stable intrahepatic and extrahepatic biliary ductal dilatation. Biliary stent is seen. The remainder of the examination is unchanged. Reading Location: [place] [address] Physical Exam Narrative General: Alert, Oriented x3, Cooperative, No apparent distress HEENT: Atraumatic, PERRLA, EOMI, Normocephalic Oral: Moist Mucosa Neck: Supple, No JVD Lungs: Diminished, Normal air movement, No rhonchi, No wheeze, No rales Cardiovascular: Regular rate, Regular Rhythm, Normal S1, Normal S2, No murmurs Abdomen: Soft, Non Tender, slightly bloated, No Hepato-splenomegaly Extremities: No edema, Capillary Refill Less than 3 Seconds Skin: No rashes, No breakdown Musculoskeletal: No Tenderness to Palpation of Joints or Extremities Neurological: No focal neurological deficits, moves all extremities Psych/Mental Status: Normal Affect, Appropriate Assessment & Plan Assessment/Plan (1) Dilated bile duct: (2) Mass of head of pancreas: PLAN: Plan 1. Pancreatic head mass with hyperbilirubinemia and transaminitis and biliary duct dilatation ?Appreciate gastroenterology assistance ? CA 19-9 and AFP are negative ? LFTs and bilirubin have risen again ? CT scan of the abdomen demonstrated possible change in position of his biliary stent therefore GI will take him back for ERCP today for repositioning ? Currently n.p.o. but can likely resume diet after procedure 2. Hypokalemia ? Will monitor and replace 3. Hyperglycemia and elevated blood pressure ? A1c is 5.9, he is not diabetic ? Blood pressures are elevated but this is likely related to current diagnosis and stress ? He has been started on admission on Norvasc, will hold and see if his blood pressure resolves after intervention for his pancreatic head mass DVT: Lovenox Charges/Coding Visit Charges Inpatient E&M: 04634 Subs Hosp L2
--- NOTE | 2025-01-28 12:47 | PRE.ANES_ITS ---
ASA Classification* ASA Classification ASA Classification: 3 Assessment & Plan Anesthesia* Anesthesia Assessment Anesthesia Assessment: Discussed sedation and/or anesthesia options, risks, benefits, and alternatives with patient/parents/legal guardian/POA. Questions invited. The patient/parents/legal guardian/POA seems to understand and agrees to proceed with anesthesia plan. Reviewed the physical assessment, medical history, allergy history and patient home medications list prior to surgery/procedure/anesthetic and documented any changes. Performed airway and anesthesia risk assessments. Anesthesia Type Anesthesia Type: General Anesthesia Focused Assessment* Temperature: 98.1 F Pulse Rate: 79 Blood Pressure: 154/92 Respiratory Rate: 16 Pulse Ox: 95 Airway Assessment Mouth opens: >3 cm Mallampati Score: II Labs Anesthesia Preop lab: CBC WBC, (4.4-11.0) 12.2 K/mm3 H Today, 05:47 RBC, (4.6-6.2) 4.13 M/mm3 L Today, 05:47 Hgb, (13.0-16.5) 11.9 g/dL L Today, 05:47 Hct, (40-54) 35.1 % L Today, 05:47 Plt Count, (150-450) 250 K/mm3 Today, 05:47 CHEMISTRY Potassium, (3.3-5.1) 3.7 mmol/L Today, 05:47 Sodium, (133-145) 135 mmol/L Today, 05:47 Magnesium, (1.5-2.2) 2.2 mg/dL 01/25/25, 05:12 Phosphorus, (2.7-4.5) 3.1 mg/dL 01/25/25, 05:12 BUN, (4-19) 7 mg/dL Today, 05:47 Creatinine, (0.70-1.20) 0.61 mg/dL L Today, 05:47 Glucose, (70-99) 103 mg/dL H Today, 05:47 POC Glucose, (74-106) 133 mg/dL H 01/27/25, 11:03 TSH, (0.300-4.200) 1.180 uIU/mL 01/25/25, 05:12 COAG Pre-Assessment Diagnosis/Proposed Procedure Planned Operative Procedure(s): Endoscopic retrograde cholangiopancreatography. Anesthesia History Anesthesia History - senior cobol developer: Anesthesia History - senior cobol developer Hx Hospitalization Any Problems With Anesthesia No 01/27/25 19:53 Cholinesterase deficiency No 01/27/25 19:53 You/Your Family Experience No 01/27/25 19:53 fever (hyperthermia) with Relationship Recent Exposure to Contagious No 01/27/25 19:53 Disease Does patient have nerve No 01/27/25 19:53 stimulator Patient instructed to have na 01/27/25 19:53 device shut off --Does patient have Pacemaker No 01/25/25 10:15 or ICD? When Was Last Pacemaker Check QUESTION #4 FULL TEXT: You/Your Family Experience fever (hyperthermia) with Anesthesia Last Oral Intake Last Oral intake: Last Oral Intake NPO since 00:00 01/25/25 10:15 Meds taken in AM with sips of water? Meds patient instructed to take am of surgery PONV PONV - senior cobol developer: PONV - senior cobol developer Female HX of Motion Sickness HX of N/V After Surgery Non-Smoker Duration of Surgery greater than 60 minutes Number of Risk Factors PONV Score Height & Weight Height & Weight: Anesthesia: Height & Weight Height 5 ft 5 in 01/28/25 12:23 Weight: 83.4 kg 01/28/25 12:23 Body Mass Index (BMI) 30.6 01/28/25 05:53 Respiratory Assessment Respiratory Assessment - senior cobol developer: Respiratory Tract Infection Hx - senior cobol developer Hx Respiratory Tract Infection No 01/27/25 19:53 STOP Sleep Apnea STOP Sleep Apnea - senior cobol developer: STOP Sleep Apnea - senior cobol developer Hx Hypertension Yes 01/24/25 18:56 Hx Sleep Apnea No 01/24/25 18:56 CPAP BIPAP Do you snore loudly (louder No 01/24/25 18:56 than talking or can be heard Do you often feel tired/ No 01/24/25 18:56 fatigued/ sleepy during daytime? Has anyone observed you stop No 01/24/25 18:56 breathing during sleep? STOP Results Negative 01/25/25 17:05 QUESTION #5 FULL TEXT : Do you snore loudly (louder than talking or can be heard through closed doors)? Tobacco Use History Tobacco Use History - senior cobol developer: Tobacco Use History - senior cobol developer Tobacco Use Smoking Status Never smoker 01/24/25 19:33 Hx Tobacco Use No 01/24/25 18:56 Years Smoking Packs Smoked per Day Smoking Cessation Date was within the last 15 years Hx Smoking Cessation Date Hx Smoking Cessation Counseling Hematologic Medial History Hematologic Hx - senior cobol developer: Hematologic Medical Hx - rn documentation Hx of Blood Transfusion No 01/24/25 18:56 Hx of Transfusion in last 3 No 01/24/25 18:56 Months Date of Last Transfusion (if within last 3 months) Ever experience any problems No 01/24/25 18:56 with transfusion(s)? Specify any problems Hx of Preganancy in last 3 N/A 01/24/25 18:56 Months Nurse Filling Out Transfusion ACOEY 01/24/25 18:56 & Questions: Date: 01/24/25 01/24/25 18:56 Time: 18:57 01/24/25 18:56 Patient unable to answer at this time (ie. confused, unrespo /Reproduction History /Reproductive History - senior cobol developer: /Reproductive Hx- senior cobol developer Hx Now No 01/27/25 19:53 Gestational Age (in weeks): EDC: Hx Hx Para Hx Section SAB No 01/27/25 19:53 Active Medications Active Medications: Current Medications Generic Name Dose Route Start Last Admin Trade Name Freq PRN Reason Stop Dose Admin Enoxaparin Sodium 40 mg 01/25/25 10:00 01/28/25 08:21 Enoxaparin 40 Mg/0.4 Ml Syringe SC Not Given DAILY [facility] Hydralazine HCl 10 mg 01/24/25 18:17 01/28/25 05:04 Hydralazine 20 Mg/Ml Vial IV 10 mg Q6H PRN PRN Administration SBP>140 Protocol Hydromorphone HCl 0.5 mg 01/24/25 18:17 01/27/25 22:24 Hydromorphone 0.5 Mg/0.5 Ml Syringe IV 0.5 mg Q3H PRN PRN Administration Pain Score 6-10 Sodium Chloride 250 mls @ 15 mls/hr 01/24/25 18:22 IV .[id number] PRN Saline Flush Sodium Chloride 250 mls @ 15 mls/hr 01/24/25 18:22 IV .[id number] PRN Additional IVPB Infusion Piperacillin Sod/Tazobactam 50 mls @ 12.5 mls/hr 01/27/25 19:00 01/28/25 09:09 Sod 3.375 gm/ Sodium Chloride IV Infused Q8 AKASH Infusion Sodium Chloride 1,000 mls @ 100 mls/hr 01/27/25 19:50 01/28/25 12:11 IV 0 mls/hr .Q10H AKASH Infusion Sodium Chloride 1,000 mls @ 15 mls/hr 01/28/25 12:20 01/28/25 12:33 IV 15 mls/hr .Q48H AKASH Administration Lisinopril 10 mg 01/27/25 22:00 01/28/25 08:40 Lisinopril 10 Mg Tablet PO 10 mg BID AKASH Administration Protocol Ondansetron HCl 4 mg 01/24/25 18:17 01/27/25 13:41 Ondansetron 4 Mg/2 Ml Vial IV 4 mg Q8H PRN PRN Administration NAUSEA/VOMITING Senna/Docusate Sodium 2 tablet 01/26/25 22:00 01/28/25 08:21 Senna/Docusate Sodium 1 Tablet PO Not Given BID AKASH Simethicone 80 mg 01/25/25 22:08 01/27/25 22:24 Simethicone 80 Mg Chewable Tablet PO 80 mg TIDPC PRN Administration abdominal bloating/ gas pain Sodium Chloride 10 - 40 ml 01/24/25 18:22 01/26/25 20:56 0.9% Saline Lock 10 Ml Syringe IV 10 ml UD PRN Administration SALINE FLUSH Tamsulosin HCl 0.8 mg 01/24/25 18:17 01/27/25 17:12 Tamsulosin Hcl 0.4 Mg Capsule PO 0.8 mg DAILY@1730 AKASH Administration PFSH Medical History BPH (benign prostatic hyperplasia) Non-smoker Home Medications ?Medication ?Instructions ?Recorded ?Last Taken ?Type ibuprofen 200 mg tablet (Advil) 400 mg PO Q6H PRN feve r or pain 01/24/25 Unknown History Allergy/AdvReac Type Severity Reaction Status Date / Time No Known Allergies Allergy Verified 01/28/25 12:08 Family History no significant family his Surgical History no surgical history Social History household members: family housing: apartment current occupational status: employed Smoking Status: Never smoker alcohol intake: never substance use type: does not use Review of Systems (Anesthesia) ROS Narrative System reviewed and no additional complaints, except as documented.
[2025-01-28] MEDS: Lidocaine 1% (5 ml sdv) 5 ML Vial 10 ML IV (12:51)
[2025-01-28] MEDS: fentaNYL 100 MCG/2 ML Ampul IV (12:51)
--- NOTE | 2025-01-28 13:05 | RAD_ITS ---
PROCEDURE: ERCP BILIARY/PANCREAS 01/28/2025 REASON FOR EXAM: ERCP TECHNIQUE: Procedure Code: RADERCP Modality: DX Procedure: ERCP BILIARY/PANCREAS. Fluoroscopy: 16.8 seconds. Radiation dose: 4.17 mGy. COMPARISON: Prior CT scan dated January 27 2025. FINDINGS: A biliary catheter is seen within the common bile duct. The common bile duct is dilated. There appears to be a stricture in the mid and distal portion of the duct. RAD/ERCP Biliary/Pancreas IMPRESSION: Biliary duct seen within a dilated common bile duct. Stricture seen in the mid and distal portion of the common bile duct. Reading Location: [place] [address]
--- NOTE | 2025-01-28 13:17 | ANES.CONF2 ---
Anesthesia: Confirm Documents Multiple Procedures on Account (3) Confirmed Documents: Yes
--- NOTE | 2025-01-28 13:17 | ANES.CONF2 ---
Anesthesia: Confirm Documents Multiple Procedures on Account (3) Confirmed Documents: Yes
--- NOTE | 2025-01-28 14:05 | PCM.POST.ANE ---
Anesthesia: Postop Eval I Current Vital Signs Temperature: 97.7 F Pulse Rate: 97 Blood Pressure: 132/80 Respiratory Rate: 16 Pulse Ox: 97 Oxygen Delivery Method: Room Air Assessment Airway patent: Yes Spontaneous unlabored respirations: Yes Mental status: Awake and Calm nausea: No Vomiting: No Anesthesia Complication: No Fluid Hydration Crystalloid volume administer (ml): 700 Total IV fluid infused: 700 Progress Note Anesthesia document: Postop Eval 1 completed: Yes
--- NOTE | 2025-01-28 17:06 | OP.ERCP_ITS ---
Patient Name: Leslie Mlotshwa Procedure Date: 01/28/2025 12:57 PM Date of : 1965 Age: 59 Procedure: ERCP Indications: Jaundice, Elevated liver enzymes, Tumor of the head of pancreas Providers: Martin Baptiste DO Medicines: Monitored Anesthesia Care Patient Profile: This is a 59 year old male. Refer to note in patient chart for documentation of history and physical. Patient has symptoms of acute jaundice. Complications: No immediate complications. Procedure: Pre-Anesthesia Assessment: - Prior to the procedure, a History and Physical was performed, and patient medications and allergies were reviewed. The patient is competent. The risks and benefits of the procedure and the sedation options and risks were discussed with the patient. All questions were answered and informed consent was obtained. Patient identification and proposed procedure were verified by the physician in the pre-procedure area. Mental Status Examination: alert and oriented. Airway Examination: normal oropharyngeal airway and neck mobility. Respiratory Examination: clear to auscultation. CV Examination: normal. Prophylactic Antibiotics: The patient does not require prophylactic antibiotics. Prior Anticoagulants: The patient has taken no anticoagulant or antiplatelet agents. ASA Grade Assessment: IV - A patient with severe systemic disease that is a constant threat to life. After reviewing the risks and benefits, the patient was deemed in satisfactory condition to undergo the procedure. The anesthesia plan was to use monitored anesthesia care (MAC). Immediately prior to administration of medications, the patient was re-assessed for adequacy to receive sedatives. The heart rate, respiratory rate, oxygen saturations, blood pressure, adequacy of pulmonary ventilation, and response to care were monitored throughout the procedure. The physical status of the patient was re-assessed after the procedure. After obtaining informed consent, the scope was passed under direct vision. Throughout the procedure, the patient's blood pressure, pulse, and oxygen saturations were monitored continuously. The Duodenoscope was introduced through the mouth, and advanced to the duodenum and used to inject contrast into the bile duct. The ERCP was accomplished without difficulty. The patient tolerated the procedure well. Scope In: 1:09:20 PM Scope Out: 1:31:58 PM Total Procedure Duration Time 0 hours 22 minutes 38 seconds Findings: The train clerk film was normal. The esophagus was successfully intubated under direct vision. The scope was advanced to a normal major papilla in the descending duodenum without detailed examination of the pharynx, larynx and associated structures, and upper GI tract. The upper GI tract was grossly normal. A long 0.025 inch Jagwire was passed into the biliary tree. The short-nosed traction sphincterotome was passed over the guidewire and the bile duct was then deeply cannulated. Contrast was injected. I personally interpreted the bile duct images. Ductal flow of contrast was adequate. Image quality was adequate. Contrast extended to the main bile duct. Contrast extended to the cystic duct. Contrast extended to the gallbladder. Contrast extended to the bifurcation. Contrast extended to the hepatic ducts. Contrast extended to the entire biliary tree. Opacification of the entire opacified area, common bile duct, cystic duct, gallbladder, common hepatic duct, hepatic duct bifurcation, left and right hepatic ducts and all intrahepatic branches and entire biliary tree was successful. The maximum diameter of the ducts was 10 mm. The lower third of the main bile duct contained a single segmental stenosis 6 mm in length. The entire opacified area, main bile duct, common bile duct, common hepatic duct, hepatic duct bifurcation, left and right hepatic ducts and all intrahepatic branches and entire biliary tree were diffusely dilated, secondary to a stricture. The largest diameter was 13 mm. A 5 mm biliary sphincterotomy was made with a traction (standard) sphincterotome using ERBE electrocautery. There was no post-sphincterotomy bleeding. To discover objects, the biliary tree was swept with a 12 mm balloon starting at the bifurcation. Pus was swept from the duct. Sludge was swept from the duct. Clots were swept from the duct. Debris was swept from the duct. The biliary tree contained one temporary stent. This was found to be visibly occluded. The stent was removed using a snare. It was shown to be occluded via the water column test. A 10 Fr by 7 cm temporary stent was placed 5 cm into the biliary tree. Bile flowed through the stent. The stent was in good position. Impression: - A single segmental biliary stricture was found in the lower third of the main bile duct. The stricture was indeterminate. - The entire main bile duct, entire biliary tree, left and right hepatic ducts and all intrahepatic branches, common bile duct and common hepatic duct were dilated, secondary to a stricture. - A biliary sphincterotomy was performed. - The biliary tree was swept and pus, sludge, clots and debris were found. - One stent was exchanged in the biliary tree. Procedure Code(s): --- Professional --- 43097, Endoscopic retrograde cholangiopancreatography (ERCP); with removal and exchange of stent(s), biliary or pancreatic duct, including pre- and post-dilation and guide wire passage, when performed, including sphincterotomy, when performed, each stent exchanged [id number], Endoscopic retrograde cholangiopancreatography (ERCP); with removal of calculi/debris from biliary/pancreatic duct(s) 19817, 26, Endoscopic catheterization of the biliary ductal system, radiological supervision and interpretation CPT copyright 2021 [employer]. All rights reserved. The codes documented in this report are preliminary and upon molten iron pourer review may be revised to meet current compliance requirements. Martin Baptiste DO 01/28/2025 5:06:22 PM This report has been signed electronically. Number of Addenda: 0 Note Initiated On: 01/28/2025 12:57 PM
--- NOTE | 2025-01-28 17:07 | OP.PROVAT_ITS ---
01/28/2025 Onelia Drew Np, Remigio Re : ERCP procedure for Leslie Brantley Dear Viki This procedure was performed on Tuesday, January 28, 2025. My impressions and recommendations are as follows: Impressions : - A single segmental biliary stricture was found in the lower third of the main bile duct. The stricture was indeterminate. - The entire main bile duct, entire biliary tree, left and right hepatic ducts and all intrahepatic branches, common bile duct and common hepatic duct were dilated, secondary to a stricture. - A biliary sphincterotomy was performed. - The biliary tree was swept and pus, sludge, clots and debris were found. - One stent was exchanged in the biliary tree. Recommendations : My findings are described in the full procedure note, which is enclosed. If I can be of further assistance, please feel free to contact me at . Sincerely, Martin Baptiste, 01/28/2025 5:06:22 PM This report has been signed electronically.
[2025-01-28] MEDS: Senna/Docusate Sodium 1 Tablet 2 TABLET PO (21:40)
[2025-01-28] MEDS: HYDROmorphone 0.5 MG/0.5 ML SYRINGE IV (21:51)
--- NOTE | 2025-01-28 22:25 | PCM.HOSP.N ---
Hospitalist Note Pt having rales throughout, encouraged I.S. use by nrsg. IVF stopped.
[2025-01-29 02:00] VITALS: PULSE 82; RESP 16
[2025-01-29 02:08] VITALS: BP 163/107; PULSE 82
[2025-01-29 02:22] VITALS: BP 163/107; PULSE 82; RESP 16; TEMP 37.1; O2SAT 97
[2025-01-29 05:21] VITALS: BMI 30.6
[2025-01-29 05:26] LABS: Hematocrit 33.8 % (40-54); Hemoglobin 11.3 g/dL (13.0-16.5); Immature Granulocytes Count 0.120 X10^3/uL (0.0-0.0); Mean Corp Hgb Conc 33.4 g/dL (32-36); Mean Corpuscular Volume 84.3 fL (80-94); Mean Platelet Vol. 10.9 fl (6.2-12.0); NRBC Flagged by Analyzer 0 % (0-5); Platelet Count 256 K/mm3 (150-450); RBC Distribution Width CV 16.7 % (11.6-14.6); RBC Distribution Width SD 51.5 fl (35.1-43.9); Red Blood Count 4.01 M/mm3 (4.6-6.2); White Blood Count 13.4 K/mm3 (4.4-11.0)
[2025-01-29] MEDS: Piperacil/Tazobactam 3.375 GM in 0.9% Normal Saline (50mL MB+) 50 ML IV (05:42)
[2025-01-29 05:48] VITALS: BP 156/103; PULSE 78; RESP 16; TEMP 37; O2SAT 97
[2025-01-29 06:02] LABS: AST(SGOT) 328 U/L (<=37); Alanine Aminotransfer ALT/SGPT 612 U/L (<=46); Albumin, Serum 3.4 g/dL (3.5-5.0); Alkaline Phosphatase 477 U/L (40-129); Anion Gap 11 (5-15); BUN 11 mg/dL (4-19); BUN/Creat Ratio 16.7 RATIO (10-20); Calcium,Total 8.5 mg/dL (7.6-11.0); Carbon Dioxide 22.8 mmol/L (21.0-32.0); Chloride 103 mmol/L (98-108); Estimated Creatinine Clearance 123.50 ml/min (50-250); Globulin 3.0 g/dL (2.2-4.2); Glucose 131 mg/dL (70-99); Potassium 4.0 mmol/L (3.3-5.1)
[2025-01-29 09:45] VITALS: BP 147/97; PULSE 78; RESP 17; TEMP 36.8; O2SAT 99
[2025-01-29] MEDS: Senna/Docusate Sodium 1 Tablet 2 TABLET PO (09:58)
--- NOTE | 2025-01-29 13:30 | DCINST_ITS ---
Discharge Instructions DC O2, CPAP, BIPAP needs Home O2 Discharge instructions: No Dressing / Incision Discharge Activity: - (Increase activity as tolerated) Follow Up Care Test Results: Test results from this visit will be discussed in further detail at your follow- up appointment, if applicable. Discharge Plan Admission Admit Date/Time: 01/24/25 16:03 Primary Reason for Your Visit: Yellowing of the eyes Attending Provider: Ellen Mcqueen Primary Care Provider: Onelia Drew Consulting Providers: Adal Trinh; Martin Baptiste; Whitney Flores; Lana Magdaleno; Moyn Givens; Gisselle Corona; Amador Herrera Instructions Patient Instructions: DASH Plan Heart Health Additional Instructions / Restrictions: DISCHARGE INSTRUCTIONS PLEASE READ *Please take this with you to your next doctors appointment* -You had a stent placed in your pancreatic duct -You will need to follow-up with Dr. Baptiste with GI in his office upon discharge. Please call his office to schedule an appointment (ph. [phone]) -You will be discharged on another 8 days of Augmentin for your infection -You were also started on tamsulosin (Flomax) to help with urination -Additionally due to elevated blood pressure you have been started lisinopril 10 mg twice a day -Please call your primary care provider's office upon discharge to schedule a hospital follow up within 1 week. -For any concerning signs or symptoms please call 911 or proceed to the nearest emergency department Discharge Orders/Prescriptions Prescriptions: New lisinopril 10 mg Tablet 10 mg PO BID 30 Days Qty: 60 1RF amoxicillin-pot clavulanate 875-125 mg tablet 1 tab PO BID 8 Days Qty: 16 0RF tamsulosin 0.4 mg Capsule 0.8 mg PO DAILY 30 Days Qty: 60 0RF Discontinued ibuprofen [Advil] 200 mg tablet 400 mg PO Q6H PRN (Reason: fever or pain) Referrals / Follow Up: Martin Baptiste DO [Med Staff - Active Staff, Gastroenterology] - Within 1 Week Referral Note: -You will need to follow-up with Dr. Baptiste with GI in his office upon discharge. Please call his office to schedule an appointment (ph. [phone]) Onelia Drew, [employer]INK[employer] SERVICE TECHNICIAN-C [Primary Care Provider, Family Practice] - Within 1 Week Disposition Disposition (needs filled in before D/C Order can be placed): Home, Self Care
--- NOTE | 2025-01-29 13:39 | PCM.DC.SUM ---
Providers Date of Admission: 01/24/25 Date of Discharge: 01/29/25 Primary Care Physician: AMY Mackey, CIVIL ENGINEERING TEACHER-C Consultations 01/24/25 18:17 Consult: Gastroenterology Routine Consulting Provider: [facility] Reason for Consult: pancreatic head mass EMERGENT Consult: No MD Notified: Yes Date Notified: 01/24/25 Time Notified: 16:03 Method of Notification: ED Physician Initiated Reason For Visit: TRANSAMINITIS/HYPERBILIRUBINEMIA/PANCREATIC Diagnosis Discharge Diagnosis (1) Dilated bile duct: Status: Acute Code(s): K83.8 - Other specified diseases of biliary tract (2) Mass of head of pancreas: Status: Acute Code(s): K86.89 - Other specified diseases of pancreas (3) HTN (hypertension): Status: Chronic Code(s): I10 - Essential (primary) hypertension (4) Obstructive jaundice: Status: Acute Code(s): K83.1 - Obstruction of bile duct (5) Urinary retention: Status: Acute Code(s): R33.9 - Retention of urine, unspecified Plan #Pancreatic head mass #Dilated bile duct with stricture #Hyperbilirubinemia #Urinary retention #Obstructive jaundice #HTN Medications at Discharge Home Medications amoxicillin 875 mg-potassium clavulanate 125 mg tablet 1 tab PO BID 8 days #16 tabs 01/29/25 lisinopril 10 mg tablet 10 mg PO BID 30 days #60 tabs 01/29/25 tamsulosin 0.4 mg capsule 0.8 mg (2 x 0.4 mg) PO DAILY 30 days #60 caps 01/29/25 Hospital Course Procedures - (ERCP x2 with stent and stent exchanged) Summary of Care Provided Minutes Spent on Discharge: 31 Hospital Course: 59 y/o male who presented to [facility] ED 01/24/2025 due to abnormal outpatient labs. The month prior he had abnormally colored urine and then over the week prior to presentation the whites of his eyes became yellow. He did not have any abdominal pain, nausea or vomiting, or abnormal bowel movements. No weight loss. Is an immigrant from [place] and has been in the [place] for 5 years. In the ED temp was 98.3, heart rate 79, respiratory rate 16 blood pressure 215/124. Pulse ox 98% on room air. CBC unremarkable, liver panel did show alk phos was 779 with an ALT of 659, AST of 403 a direct bilirubin of 6.83 and bilirubin was 9.37. CT of the abdomen pelvis was done and showed dilated intrahepatic biliary ducts as well as dilated common bile duct and pancreatic duct with findings suggestive of a mass in the pancreatic head, scattered hepatic cysts, distended urinary bladder and enlarged prostate. Case was discussed with GI and plan was for inpatient ERCP, hospitalist contacted for admission. Patient had initial ERCP 01/25/2025 with a stent placed due to a single localized biliary stricture in the lower third of the main bile duct with the entire main bile duct severely dilated with a mass causing obstruction. Also had choledocholithiasis which was removed by biliary sphincterotomy and balloon extraction. Patient had a leukocytosis and was placed on antibiotics. He did have increased bloating in his abdomen and a repeat CT scan demonstrated possible change in position of biliary stent so GI took him back for ERCP on 01/28/2025. Repeat ERCP with a stricture in lower third of main duct with the entire biliary system dilated secondary to stricture. A sphincterotomy again performed and biliary tree swept with pus, sludge, clots, and debris. He then had 1 stent exchange in the biliary tree. Patient tolerated this well, following day was tolerating diet, did not note any pain for me or nausea. Patient been up ambulating and feels comfortable discharging home. Patient was hypertensive during his stay and was started on lisinopril. Blood pressure was variable with some readings as low as 130s and other readings higher but patient asymptomatic. Patient just started on this medications do not think it is reached full effect. Given lack of symptoms with recent initiation of blood pressure medication think it is reasonable for patient to follow-up closely with the PCP for further monitoring and adjustment if needed. Discussed with GI on day of discharge, it was advised patient be discharged on a total of 10 days of antibiotics and follow-up in the office for further dispo/plan/management. Patient comfortable with this plan. Patient discharged 01/29/2025 with the following described instructions: -You had a stent placed in your pancreatic duct -You will need to follow-up with Dr. Baptiste with GI in his office upon discharge. Please call his office to schedule an appointment (. [phone]) -You will be discharged on another 8 days of Augmentin for your infection -You were also started on tamsulosin (Flomax) to help with urination -Additionally due to elevated blood pressure you have been started lisinopril 10 mg twice a day -Please call your primary care provider's office upon discharge to schedule a hospital follow up within 1 week. -For any concerning signs or symptoms please call 911 or proceed to the nearest emergency department Physical Exam Narrative General: Alert, oriented, no apparent distress HEENT: Atraumatic, normocephalic Eyes: Still some yellowing of sclera, normal conjunctiva, extraocular movements grossly intact Neck: Supple Respiratory: Clear to auscultation bilaterally, normal respiratory effort Cardiovascular: Regular rate and rhythm GI:Mild bloating with no tenderness, no rebound, guarding, rigidity Extremities: No edema Musculoskeletal: Moving all extremities Neuro: No overt focal neurological deficits Skin: No rashes appreciated Psych: Cooperative Weight / BMI Weight Weight: 83.4 kg Body Mass Index (BMI) 30.6 ABG / Lab / Microbiology Data 01/29/25 04:35 01/29/25 04:35 Laboratory: Laboratory Results - last 24 hr 01/29/25 04:35: WBC 13.4 H, RBC 4.01 L, Hgb 11.3 L, Hct 33.8 L, MCV 84.3, MCH 28.2, MCHC 33.4, RDW Std Deviation 51.5 H, RDW Coeff of Amie 16.7 H, Plt Count 256, MPV 10.9, Immature Gran % (Auto) 0.900, Neut % (Auto) 77.9 H, Lymph % (Auto) 10.0 L, [place] % (Auto) 11.1 H, Eos % (Auto) 0.0, Baso % (Auto) 0.1, Absolute Neuts (auto) 10.4 H, Absolute Lymphs (auto) 1.34, Nucleated RBC % 0, Sodium 137, Potassium 4.0, Chloride 103, Carbon Dioxide 22.8, Anion Gap 11, BUN 11, Creatinine 0.64 L, Estim Creat Clear Calc 123.50, Est GFR (MDRD) Non-Af 109, BUN/Creatinine Ratio 16.7, Glucose 131 H, Calcium 8.5, Total Bilirubin 7.01 H, AST 328 H, ALT 612 H, Alkaline Phosphatase 477 H, Total Protein 6.4, Albumin 3.4 L, Globulin 3.0, Albumin/Globulin Ratio 1.2 Radiography Diagnostic Testing: Radiology Impression Endo Retro Cholangiopancreatogram 01/28/25 13:05 IMPRESSION: Biliary duct seen within a dilated common bile duct. Stricture seen in the mid and distal portion of the common bile duct. Reading Location: [place] [id number] D/C Instructions DC O2, CPAP, BIPAP Needs Home O2 Discharge instructions: No Meaningful Use Info Meaningful Use Meaningful Use Diagnoses (Choose all that apply): None applicable Discharge Plan Admission Admit Date/Time: 01/24/25 16:03 Primary Reason for Your Visit: Yellowing of the eyes Attending Provider: Ellen Mcqueen Primary Care Provider: Onelia Drew [facility] Consulting Providers: Adal Trinh; Martin Baptiste; Whitney Flores; Lana Magdaleno; Mony Givens; Gisselle Corona; Amador Herrera Instructions Patient Instructions: DASH Plan Heart Health Additional Instructions / Restrictions: DISCHARGE INSTRUCTIONS PLEASE READ *Please take this with you to your next doctors appointment* -You had a stent placed in your pancreatic duct -You will need to follow-up with Dr. Baptiste with GI in his office upon discharge. Please call his office to schedule an appointment (ph. [phone]) -You will be discharged on another 8 days of Augmentin for your infection -You were also started on tamsulosin (Flomax) to help with urination -Additionally due to elevated blood pressure you have been started lisinopril 10 mg twice a day -Please call your primary care provider's office upon discharge to schedule a hospital follow up within 1 week. -For any concerning signs or symptoms please call 911 or proceed to the nearest emergency department Discharge Orders/Prescriptions Prescriptions: New lisinopril 10 mg Tablet 10 mg PO BID 30 Days Qty: 60 1RF amoxicillin-pot clavulanate 875-125 mg tablet 1 tab PO BID 8 Days Qty: 16 0RF tamsulosin 0.4 mg Capsule 0.8 mg PO DAILY 30 Days Qty: 60 0RF Discontinued ibuprofen [Advil] 200 mg tablet 400 mg PO Q6H PRN (Reason: fever or pain) Referrals / Follow Up: Martin Baptiste DO [Med Staff - Active Staff, Gastroenterology] - Within 1 Week Referral Note: -You will need to follow-up with Dr. Baptiste with GI in his office upon discharge. Please call his office to schedule an appointment (ph. [phone]) Onelia Drew, CIVIL ENGINEERING TEACHER-C [Primary Care Provider, [facility]] - Within 1 Week Disposition Disposition (needs filled in before D/C Order can be placed): Home, Self Care Charges/Coding Visit Charges Inpatient E&M: 37153 Disch Hosp >30min
[2025-01-29 14:35] VITALS: BP 175/109; PULSE 75; RESP 18; TEMP 36.7; O2SAT 100
--- NOTE | 2025-01-29 15:12 | NURSING ---
Pt has denied pain all day for this RN. No prn's given. This RN told him that if he gets pain at home to take Advil but if the Advil was not effective and pain is severe to come back to the ED. Pt understands.
== END 2025-01-29 15:55 | disposition home or self-care (01) | DRG 439 ==
LOC: ED 16:38 → MS3 17:18
PROVIDERS: Family Medicine; Internal Medicine Gastroenterology; Admitting Provider Internal Medicine; Emergency Provider Emergency Medicine; Visit Provider Internal Medicine
PROC: 0FC98ZZ Extirpation of Matter from Common Bile Duct, Via Natural or Artificial Opening Endoscopic (ICD-10-PCS; CPT 43260; principal; 2025-01-25 16:10)
PROC: 0FHB8DZ Insertion of Intraluminal Device into Hepatobiliary Duct, Via Natural or Artificial Opening Endoscopic (ICD-10-PCS; CPT 43260; principal; 2025-01-28 10:55)
DX: K86.89 Other specified diseases of pancreas (principal); K80.51 Calculus of bile duct without cholangitis or cholecystitis with obstruction; I10 Essential (primary) hypertension; K83.8 Other specified diseases of biliary tract; E87.6 Hypokalemia; R33.9 Retention of urine, unspecified; R74.01 Elevation of levels of liver transaminase levels; R73.9 Hyperglycemia, unspecified; E66.3 Overweight; Z68.24 Body mass index [BMI] 24.0-24.9, adult
CPT/HCPCS: 36415; 71250; 74177; 74183; 74328; 74330; 76000; 80053; 81001; 82105; 82248; 82784; 82787; 82962; 83690; 83735; 84100; 84443; 85025; 86037; 86225; 86235; 86301; 88108; 88161; 88304; 88305; 88313; 93005; 94668; 99285; A9575; C2625; Q9967; A4216; J2405

== ENCOUNTER → 2025-02-07 | Outpatient (CLI) | payer BC, SELFPAY ==
[2025-02-07 17:44] LABS: Hematocrit 42.3 % (40-54); Hemoglobin 13.5 g/dL (13.0-16.5); Immature Granulocytes Count 0.110 X10^3/uL (0.0-0.0); Mean Corp Hgb Conc 31.9 g/dL (32-36); Mean Corpuscular Volume 88.9 fL (80-94); Mean Platelet Vol. 10.1 fl (6.2-12.0); NRBC Flagged by Analyzer 0 % (0-5); Platelet Count 364 K/mm3 (150-450); RBC Distribution Width CV 15.3 % (11.6-14.6); RBC Distribution Width SD 50.1 fl (35.1-43.9); Red Blood Count 4.76 M/mm3 (4.6-6.2); White Blood Count 13.0 K/mm3 (4.4-11.0)
[2025-02-07 18:44] LABS: AST(SGOT) 363 U/L (<=37); Alanine Aminotransfer ALT/SGPT 818 U/L (<=46); Albumin, Serum 4.0 g/dL (3.5-5.0); Alkaline Phosphatase 1192 U/L (40-129); Anion Gap 10 (5-15); BUN 8 mg/dL (4-19); BUN/Creat Ratio 12.1 RATIO (10-20); Calcium,Total 9.8 mg/dL (7.6-11.0); Carbon Dioxide 25.0 mmol/L (21.0-32.0); Chloride 101 mmol/L (98-108); Globulin 3.9 g/dL (2.2-4.2); Glucose 110 mg/dL (70-99); Potassium 3.9 mmol/L (3.3-5.1)
== END | disposition home or self-care (01) ==
LOC: VSLAB 12:11
DX: K83.8 Other specified diseases of biliary tract (principal)
CPT/HCPCS: 36415; 80053; 85025

== ENCOUNTER → 2025-02-09 | Outpatient (CLI) | payer BC, SELFPAY ==
--- NOTE | 2025-02-09 14:57 | CT_ITS ---
PROCEDURE: CT/CT Chest, Abd, Pel w/Contrast
== END | disposition home or self-care (01) ==
LOC: CT 14:55
PROVIDERS: Referring Provider Nurse Practitioner Acute Care; Visit Provider Nurse Practitioner Acute Care
DX: K83.1 Obstruction of bile duct (principal); K86.89 Other specified diseases of pancreas; R74.01 Elevation of levels of liver transaminase levels
CPT/HCPCS: 71260; 74177; Q9967; A4216

== ENCOUNTER → 2025-02-10 | Outpatient (CLI) | payer BC, SELFPAY ==
[2025-02-10 16:41] LABS: Hematocrit 40.6 % (40-54); Hemoglobin 13.7 g/dL (13.0-16.5); Immature Granulocytes Count 0.070 X10^3/uL (0.0-0.0); Mean Corp Hgb Conc 33.7 g/dL (32-36); Mean Corpuscular Volume 85.7 fL (80-94); Mean Platelet Vol. 9.7 fl (6.2-12.0); NRBC Flagged by Analyzer 0 % (0-5); Platelet Count 375 K/mm3 (150-450); RBC Distribution Width CV 14.0 % (11.6-14.6); RBC Distribution Width SD 43.8 fl (35.1-43.9); Red Blood Count 4.74 M/mm3 (4.6-6.2); White Blood Count 10.2 K/mm3 (4.4-11.0)
[2025-02-10 18:17] LABS: Prothrombin Time (Protime)PT. 15.3 SECONDS (11.7-14.9)
[2025-02-10 18:23] LABS: AST(SGOT) 166 U/L (<=37); Alanine Aminotransfer ALT/SGPT 473 U/L (<=46); Albumin, Serum 4.2 g/dL (3.5-5.0); Alkaline Phosphatase 974 U/L (40-129); Anion Gap 12 (5-15); BUN 8 mg/dL (4-19); BUN/Creat Ratio 11.1 RATIO (10-20); Calcium,Total 9.4 mg/dL (7.6-11.0); Carbon Dioxide 27.2 mmol/L (21.0-32.0); Chloride 100 mmol/L (98-108); Globulin 3.8 g/dL (2.2-4.2); Glucose 168 mg/dL (70-99); Potassium 4.1 mmol/L (3.3-5.1)
[2025-02-10 18:35] LABS: Lipase 500 U/L (13-75)
== END | disposition home or self-care (01) ==
LOC: LAB 15:45
PROVIDERS: Referring Provider Nurse Practitioner Acute Care; Visit Provider Nurse Practitioner Acute Care
DX: K83.1 Obstruction of bile duct (principal); K86.89 Other specified diseases of pancreas; R74.01 Elevation of levels of liver transaminase levels
CPT/HCPCS: 36415; 80053; 83690; 85025; 85610

== ENCOUNTER 2025-02-21 11:49 | Outpatient (CLI) | payer BC, SELFPAY ==
[2025-02-21 17:19] LABS: Hematocrit 39.9 % (40-54); Hemoglobin 13.5 g/dL (13.0-16.5); Immature Granulocytes Count 0.060 X10^3/uL (0.0-0.0); Mean Corp Hgb Conc 33.8 g/dL (32-36); Mean Corpuscular Volume 85.8 fL (80-94); Mean Platelet Vol. 9.9 fl (6.2-12.0); NRBC Flagged by Analyzer 0 % (0-5); Platelet Count 236 K/mm3 (150-450); RBC Distribution Width CV 13.6 % (11.6-14.6); RBC Distribution Width SD 42.5 fl (35.1-43.9); Red Blood Count 4.65 M/mm3 (4.6-6.2); White Blood Count 10.5 K/mm3 (4.4-11.0)
[2025-02-21 17:39] LABS: AST(SGOT) 30 U/L (<=37); Alanine Aminotransfer ALT/SGPT 56 U/L (<=46); Albumin, Serum 3.7 g/dL (3.4-4.8); Alkaline Phosphatase 311 U/L (40-129); Anion Gap 15 (5-15); BUN 7 mg/dL (4-19); BUN/Creat Ratio 8.9 RATIO (10-20); Calcium,Total 9.1 mg/dL (7.6-11.0); Carbon Dioxide 20.6 mmol/L (21.0-32.0); Chloride 100 mmol/L (98-108); Globulin 3.0 g/dL (2.2-4.2); Glucose 147 mg/dL (70-99); Lipase 54 U/L (13-75); Potassium 3.5 mmol/L (3.3-5.1)
== END 2025-02-21 23:59 | disposition home or self-care (01) ==
LOC: VSLAB 11:50
DX: Z00.00 Encounter for general adult medical examination without abnormal findings (principal)
CPT/HCPCS: 36415; 80053; 83690; 85025